=== PATIENT | female | born 1995 | race Caucasian/White ===

== ENCOUNTER 2017-09-01 17:45 | Emergency (ER) | payer SELFPAY ==
--- NOTE | 2017-09-01 19:27 | ER ---
Nurse's Notes [facility] Name: Vero Hoffmann Age: 22 yrs Sex: Female : 1995 Arrival Date: 09/01/2017 Time: 17:48 Bed Waiting Private MD: Diagnosis: Presentation: 09/01 17:51 Presenting complaint: Patient states: Vomiting that started 1 hour DOWN FILLER. Reports aj epigastric burning. Transition of care: patient was not received from another setting of care. Onset of symptoms was September 01, 2017. Initial Sepsis Screen: Does the patient meet any 2 criteria? No. Patient's initial sepsis screen is negative. Does the patient have a suspected source of infection? No. Patient's initial sepsis screen is negative. Care prior to arrival: None. 17:51 Method Of Arrival: Ambulatory aj 17:51 Acuity: RODOLFO 3 aj Triage Assessment: 17:52 General: Appears in no apparent distress. uncomfortable, Behavior is calm, cooperative, aj appropriate for age. Pain: Denies pain. Neuro: Level of Consciousness is awake, alert, obeys commands, Oriented to person, place, time, situation, Appropriate for age. Respiratory: Reports cough that is Onset: The symptoms/episode began/occurred just prior to arrival, the patient has mild shortness of breath. GI: Reports nausea, vomiting. Derm: Skin is intact, is healthy with good turgor, Skin is pink, warm \T\ dry. normal. 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 Vital Signs: 17:52 BP 130 / 79; Pulse 99; Resp 20; Temp 98.2; Pulse Ox 100% on R/A; Weight 93.44 kg; aj Height 5 ft. 3 in. (160.02 cm); 17:52 Body Mass Index 36.49 (93.44 kg, 160.02 cm) aj ED Course: 17:48 Patient arrived in ED. sb2 17:52 Triage completed. aj 17:52 Arm band placed on left wrist. Patient placed in waiting room, Patient notified of wait aj time. 18:48 Shanta Ye FNP-C is [facility]. snw 18:48 Stanislav Stewart MD is Attending Physician. snw 19:15 Patient's name was called from ER lobby. No response. aj 19:25 Patient's name was called from ER lobby. No response. Unable to locate patient. Will aj disposition as left without being seen by a provider. 19:26 Stanislav Stewart MD is Attending Physician. aj Administered Medications: No medications were administered Outcome: 19:25 Eloped from waiting room, post triage evaluation and consult. Registration reported aj seeing patient leave 19:26 Patient left the ED. aj Signatures: Pat Younger, RN RN Shanta Mahoney FNP-C AD CLERK-Csnw Shayy Aly sb2
[2017-09-01 19:30] VITALS: BP 130/79; TEMP 98.2; O2SAT 100
== END 2017-09-01 19:26 | disposition left against medical advice (07) ==
LOC: ER 17:45
DX: Z53.21 Procedure and treatment not carried out due to patient leaving prior to being seen by health care provider (principal)
CPT/HCPCS: 99281

== ENCOUNTER 2017-09-07 19:31 | Emergency (ER) | payer OTHER ==
[2017-09-07] MEDS ORDERED: MAGNE/ALUM HYDROXD 30 ML UCUP ONE (20:12)
[2017-09-07] MEDS ORDERED: FAMOTIDINE 20 MG/2 ML VIAL IV ONE (20:13)
[2017-09-07] MEDS ORDERED: LIDOCAINE VISCOUS 2% SOLN 15 ML UDC ONE (20:13)
[2017-09-07] MEDS ORDERED: ONDANSETRON 4 MG/2 ML VIAL ONE (20:13)
[2017-09-07 20:21] LABS: Absolute Lymphocytes (CBC) 2.1 K/uL (0.7-4.9); Absolute Monocytes 0.6 K/uL (0.1-1.3); Absolute Neutrophil 6.7 K/uL (1.8-8.0); Basophils % 0.2 % (0-1.3); Eosinophils % 3.3 % (0-4.4); Hematocrit 41.1 % (36.0-45.0); Lymphocytes % 21.7 % (15.3-44.8); MCH 28.4 pg (27.0-35.0); MCV 86.2 fL (80-100); MPV 10.8 fL (7.6-11.3); Monocytes % 6.2 % (3.3-12.3); RBC Red Blood Cell Count 4.77 M/uL (3.86-4.86)
[2017-09-07 20:22] LABS: Urine Blood NEGATIVE (NEG); Urine Glucose NEGATIVE (NEG); Urine Protein NEGATIVE (NEG); Urine Specific Gravity >1.030 (1.005-1.030); Urine pH 5.5 (5.0-7.0)
[2017-09-07 20:30] LABS: Bicarbonate 29 mEq/L (21-31); Glucose Level 105 mg/dL (65-120); Lipase 26 U/L (22-51); Potassium 3.4 mEq/L (3.6-5.0); Sodium Level 140 mEq/L (135-145)
[2017-09-07 20:36] LABS: ALT/SGPT 11 IU/L (10-60); AST/SGOT 18 IU/L (10-42); Albumin 4.5 g/dL (3.2-5.5); Alkaline Phosphatase 57 IU/L (42-121); Amylase Level 67 U/L (28-100); BUN Blood Urea Nitrogen 11 mg/dL (6-20); Bilirubin Direct < 0.1 mg/dL (0-0.2); Bilirubin Total 0.3 mg/dL (0.3-1.2); Protein, Total 8.4 g/dL (6.0-8.3)
[2017-09-07 20:37] LABS: Urine Amorphous Sediment 1+ /HPF (NONE SEEN); Urine Bacteria <20 /HPF (<20); Urine Culture Reflex Order NOT NEEDED; Urine Mucus 2+ /HPF (NONE SEEN); Urine RBC <5 /HPF (NONE SEEN)
--- NOTE | 2017-09-07 20:41 | RAD REPORT ---
EXAM DESCRIPTION: RAD - Chest Pa And Lat (2 Views) - 09/07/2017 8:31 pm CLINICAL HISTORY: Chest pain COMPARISON: None. TECHNIQUE: PA and lateral views of the chest were obtained. FINDINGS: The lungs are clear. Heart size is normal and central vasculature is within normal limit s. No pleural effusion or pneumothorax seen. No acute bony finding noted. No aortic abnormality. IMPRESSION: No acute cardiopulmonary process.
--- NOTE | 2017-09-07 20:54 | EDPHYS ---
Physician Documentation [facility] Name: Vero Hoffmann Age: 22 yrs Sex: Female : 1995 Arrival Date: 09/07/2017 Time: 19:32 Bed 20 Private MD: ED Physician Tasha Mejia HPI: 09/07 20:13 This 22 yrs old Female presents to ER via Ambulatory with complaints of Nasal ma2 Congestion, Nausea. 20:13 Onset: The symptoms/episode began/occurred gradually, 1 day(s) ago. Severity of ma2 symptoms: At their worst the symptoms were mild. Associated signs and symptoms: Pertinent positives: nausea, vomiting, Pertinent negatives: chest pain, diarrhea, ear ache, sore throat. The patient has experienced similar episodes in the past, takes tums . has epigastric burning and vomiting with eating and drinking . 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 - Social history:: Smoking status: Patient/guardian denies using tobacco, Patient/guardian denies using alcohol, street drugs, The patient lives with family. - Family history:: not pertinent. ROS: 20:13 Constitutional: Negative for fever, chills, and weight loss. ma2 20:13 Abdomen/GI: Positive for nausea and vomiting. 20:13 All other systems are negative. Exam: 20:13 Constitutional: This is a well developed, well nourished patient who is awake, alert, ma2 and in no acute distress. Head/Face: Normocephalic, atraumatic. Chest/axilla: Normal chest wall appearance and motion. Nontender with no deformity. No lesions are appreciated. Cardiovascular: Regular rate and rhythm with a normal S1 and S2. No gallops, murmurs, or rubs. Normal PMI, no JVD. No pulse deficits. Respiratory: Lungs have equal breath sounds bilaterally, clear to auscultation and percussion. No rales, rhonchi or wheezes noted. No increased work of breathing, no retractions or nasal flaring. Abdomen/GI: Soft, non-tender, with normal bowel sounds. No distension or tympany. No guarding or rebound. No evidence of tenderness throughout. Vital Signs: 19:40 BP 137 / 89; Pulse 69; Resp 19; Temp 98.4; Pulse Ox 100% on R/A; Weight 83.01 kg; la1 Height 5 ft. 3 in. (160.02 cm); 21:00 Pulse 75; Resp 16; Temp 98.6; Pulse Ox 100% ; bp 19:40 Body Mass Index 32.42 (83.01 kg, 160.02 cm) la1 MDM: 19:45 Patient medically screened. ma2 20:13 Differential Diagnosis: Bronchitis Upper Respiratory Infection Viral Syndrome Other ma2 GERD. 20:52 Data reviewed: vital signs, nurses notes, lab test result(s), radiologic studies. ma2 Counseling: I had a detailed discussion with the patient and/or guardian regarding: the historical points, exam findings, and any diagnostic results supporting the discharge/admit diagnosis, the presence of at least one elevated blood pressure reading (>120/80) during this emergency department visit, the need for outpatient follow up. ED course: pooja Lindsay po will send home with pcp f/u . 09/07 19:55 Order name: Amylase, Serum; Complete Time: 20:51 [facility] 09/07 19:55 Order name: Basic Metabolic Panel; Complete Time: 20:51 [facility] 09/07 19:55 Order name: CBC with Diff; Complete Time: 20:51 [facility] 09/07 19:55 Order name: Creatinine for Radiology; Complete Time: 20:51 [facility] 09/07 19:55 Order name: Hepatic Function; Complete Time: 20:51 [facility] 09/07 19:55 Order name: Lipase; Complete Time: 20:51 [facility] 09/07 19:55 Order name: Urine Microscopic Only; Complete Time: 20:51 [facility] 09/07 19:55 Order name: IV Saline Lock; Complete Time: 20:11 [facility] 09/07 19:55 Order name: XRAY Chest Pa And Lat (2 Views); Complete Time: 20:51 [facility] 09/07 20:16 Order name: Urine Dipstick--Ancillary (enter results); Complete Time: 20:51 [facility] 09/07 20:16 Order name: Urine --Ancillary (enter results); Complete Time: 20:51 [facility] 09/07 19:55 Order name: Labs collected and sent; Complete Time: 20:11 mo2 09/07 19:55 Order name: Urine Dipstick-Ancillary (obtain specimen); Complete Time: 20:11 mo2 09/07 19:55 Order name: Urine Test (obtain specimen); Complete Time: 20:11 Administered Medications: 20:05 Drug: GI Cocktail without - (Maalox Suspension 30 ml, Lidocaine Liquid 2 % 15 bp ml) Route: PO; 20:20 Follow up: Response: No adverse reaction bp 20:05 Drug: Zofran 4 mg Route: PO; bp 20:20 Follow up: Response: No adverse reaction bp 20:05 Drug: Pepcid 20 mg Route: PO; bp 20:21 Follow up: Response: No adverse reaction bp Disposition: 09/07/17 20:53 Discharged to Home. Impression: Vomiting. - Condition is Stable. - Prescriptions for Zofran 4 mg Oral Tablet - take 1 tablet by ORAL route every 12 hours As needed; 20 tablet. Pepcid 20 mg Oral Tablet - take 1 tablet by ORAL route once daily for 10 days; 10 tablet. - Medication Reconciliation Form, Thank You Letter, Antibiotic Education, Prescription Opioid Use form. - Follow up: Private Physician; When: Tomorrow; Reason: Continuance of care. - Problem is new. - Symptoms have improved. Signatures: Dispatcher [employer] EDMS Karen Santiago ms Darren Dalton, RN RN la1 Delmar Sky RN RN bp Tasha Mejia MD MD ma2 Corrections: (The following items were deleted from the chart) 21:08 20:53 09/07/2017 20:53 Discharged to Home. Impression: Vomiting. Condition is Stable. ms Forms are Medication Reconciliation Form, Thank You Letter, Antibiotic Education, Prescription Opioid Use. Follow up: Private Physician; When: Tomorrow; Reason: Continuance of care. Problem is new. Symptoms have improved. ma2
--- NOTE | 2017-09-07 20:54 | ER ---
Nurse's Notes [facility] Name: Vero Hoffmann Age: 22 yrs Sex: Female : 1995 Arrival Date: 09/07/2017 Time: 19:32 Bed 20 Private MD: Diagnosis: Vomiting Presentation: 09/07 19:40 Presenting complaint: Patient states: anytime after I eat I get a burning sensation and la1 throw up. 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 Transition of care: patient was not received from another setting of care. Onset of symptoms was September 07, 2017. Initial Sepsis Screen: Does the patient meet any 2 criteria? No. Patient's initial sepsis screen is negative. Does the patient have a suspected source of infection? No. Patient's initial sepsis screen is negative. Care prior to arrival: None. 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 - Social history:: Smoking status: Patient/guardian denies using tobacco, Patient/guardian denies using alcohol, street drugs, The patient lives with family. - Family history:: not pertinent. Screenin:53 Abuse screen: Denies threats or abuse. Denies injuries from another. Nutritional bp screening: No deficits noted. Tuberculosis screening: No symptoms or risk factors identified. Fall Risk None identified. Assessment: 19:45 General: Appears in no apparent distress. comfortable, obese, Behavior is calm, bp cooperative, appropriate for age. Pain: Complains of pain in neck. Neuro: Level of Consciousness is awake, alert, obeys commands, Oriented to person, place, time, situation, Appropriate for age. Cardiovascular: No deficits noted. Respiratory: Airway is patent Respiratory effort is even, unlabored, Respiratory pattern is regular, symmetrical. GI: Abdomen is obese, Abd is soft and non tender X 4 quads. : No deficits noted. EENT: No deficits noted. Derm: No deficits noted. Musculoskeletal: Circulation, motion, and sensation intact. Range of motion: intact in all extremities. 21:00 Reassessment: PT D/C HOME AMBULATORY WITH FAMILY, DX WITH VOMITING. bp Vital Signs: 19:40 BP 137 / 89; Pulse 69; Resp 19; Temp 98.4; Pulse Ox 100% on R/A; Weight 83.01 kg; la1 Height 5 ft. 3 in. (160.02 cm); 21:00 Pulse 75; Resp 16; Temp 98.6; Pulse Ox 100% ; bp 19:40 Body Mass Index 32.42 (83.01 kg, 160.02 cm) la1 ED Course: 19:32 Patient arrived in ED. am2 19:40 Triage completed. la1 19:41 Arm band placed on right wrist. la1 19:45 Tasha Mejia MD is Attending Physician. ma2 19:51 Delmar Sky, RN is Primary Nurse. bp 19:53 Patient has correct armband on for positive identification. Bed in low position. Call bp light in reach. Side rails up X2. 20:00 Inserted saline lock: 20 gauge in right forearm, using aseptic technique. Blood bp collected. 20:31 XRAY Chest Pa And Lat (2 Views) In Process Unspecified. EDMS 21:09 No provider procedures requiring assistance completed. IV discontinued, intact, bp bleeding controlled, No redness/swelling at site. Pressure dressing applied. Administered Medications: 20:05 Drug: GI Cocktail without - (Maalox Suspension 30 ml, Lidocaine Liquid 2 % 15 bp ml) Route: PO; 20:20 Follow up: Response: No adverse reaction bp 20:05 Drug: Zofran 4 mg Route: PO; bp 20:20 Follow up: Response: No adverse reaction bp 20:05 Drug: Pepcid 20 mg Route: PO; bp 20:21 Follow up: Response: No adverse reaction bp Outcome: 20:53 Discharge ordered by . maRichard 21:08 Patient left the ED. ms 21:11 Discharged to home ambulatory, with family. bp 21:11 Condition: stable 21:11 Discharge instructions given to patient, Instructed on discharge instructions, follow up and referral plans. medication usage, Demonstrated understanding of instructions, follow-up care, medications, Prescriptions given X 2. Signatures: Dispatcher [employer] EDCA Karen Santiago ms Darren Dalton RN RN la1 Pat Reyes am2 Delmar Sky RN RN bp Alzahri, Mohammad, MD MD ma2
[2017-09-07 21:18] VITALS: BP 137/89; TEMP 98.4; O2SAT 100
== END 2017-09-07 21:08 | disposition home or self-care (01) ==
LOC: ER 19:31
DX: R11.10 Vomiting, unspecified (principal)
CPT/HCPCS: 36415; 71046; 80048; 80076; 81003; 81015; 81025; 82150; 83690; 85025; 99284; J2405

== ENCOUNTER 2017-09-08 17:47 | Emergency (ER) | payer OTHER ==
[2017-09-08 18:48] LABS: Absolute Lymphocytes (CBC) 1.5 K/uL (0.7-4.9); Absolute Monocytes 0.7 K/uL (0.1-1.3); Absolute Neutrophil 9.8 K/uL (1.8-8.0); Basophils % 0.6 % (0-1.3); Eosinophils % 2.3 % (0-4.4); Hematocrit 42.7 % (36.0-45.0); Lymphocytes % 11.8 % (15.3-44.8); MCH 28.1 pg (27.0-35.0); MCV 87.6 fL (80-100); MPV 10.6 fL (7.6-11.3); Monocytes % 5.9 % (3.3-12.3); RBC Red Blood Cell Count 4.87 M/uL (3.86-4.86)
[2017-09-08 18:51] LABS: Urine Blood TRACE (NEG); Urine Glucose NEGATIVE (NEG); Urine Protein NEGATIVE (NEG); Urine Specific Gravity >1.030 (1.005-1.030); Urine pH 5.5 (5.0-7.0)
[2017-09-08 18:57] LABS: Potassium 3.4 mEq/L (3.6-5.0)
[2017-09-08 19:00] LABS: Urine Bacteria <20 /HPF (<20); Urine Culture Reflex Order NOT NEEDED; Urine RBC <5 /HPF (NONE SEEN)
[2017-09-08 19:03] LABS: Albumin 4.4 g/dL (3.2-5.5); Bilirubin Direct 0.1 mg/dL (0-0.2); Bilirubin Total 0.4 mg/dL (0.3-1.2); Protein, Total 8.2 g/dL (6.0-8.3)
[2017-09-08] MEDS ORDERED: PANTOPRAZOLE 40 MG INJ ONE (19:42)
[2017-09-08] MEDS ORDERED: ONDANSETRON 4 MG/2 ML VIAL ONE (19:42)
[2017-09-08] MEDS ORDERED: NA CHLORIDE 0.9% 1,000 ML ONE (19:42)
--- NOTE | 2017-09-08 22:05 | RAD REPORT ---
EXAM DESCRIPTION: CT - Chest Abdomen Pelvis W Cont - 09/08/2017 9:54 pm CLINICAL HISTORY: Chest and abdomen pain. Vomiting. COMPARISON: 05/15/[address] scans are performed using dose optimization technique as appropriate and may includ e automated exposure control or mA/KV adjustment according to patient size. FINDINGS: The lungs are clear.Small hiatal hernia.No pleural or pericardial effusion.No intrathoraci c adenopathy. The liver demonstrates mild diffuse fatty infiltration. The spleen, pancreas, adrenal glands and kidn eys are within normal limits. Small fat containing umbilical hernia. No bowel obstruction, free air, free fluid or abscess. The appendix is normal. No pathologic lymphade nopathy in the abdomen or pelvis. No worrisome osseous finding. IMPRESSION: No acute finding is demonstrated. Fatty liver.
[2017-09-08] MEDS ORDERED: POTASSIUM CL SA 10 MEQ TAB PO ONE (22:23)
--- NOTE | 2017-09-08 22:31 | EDPHYS ---
Physician Documentation [facility] Name: Vero Hoffmann Age: 22 yrs Sex: Female : 1995 Arrival Date: 09/08/2017 Time: 17:49 Bed 15 Private MD: ED Physician Kirt Lafleur HPI: 09/08 18:30 This 22 yrs old Female presents to ER via Ambulatory with complaints of cp Vomiting. 18:30 The patient presents to the emergency department with nausea, that is mild, vomiting, cp that is intermittent, described as undigested food, abdominal pain, of the epigastric area and retrosternal area. 18:30 Onset: The symptoms/episode began/occurred 2 day(s) ago. cp 18:30 Associated signs and symptoms: Pertinent negatives: constipation, diarrhea, fever, GI cp bleeding. Severity of symptoms: in the emergency department the symptoms are unchanged. The patient has been recently seen at the [facility] Emergency Department, yesterday, for similar complaints chest xray performed. 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 - Social history:: Smoking status: Patient/guardian denies using tobacco. ROS: 18:35 Constitutional: Negative for body aches, chills, fever, poor PO intake, weight loss. cp 18:35 Eyes: Negative for injury, pain, redness, and discharge. cp 18:35 ENT: Negative for drainage from ear(s), ear pain, sore throat, difficulty handling secretions. 18:35 Neck: Negative for pain with movement, pain at rest, stiffness, swollen nodes, tenderness, bony tenderness. 18:35 Cardiovascular: Positive for retrosternal pain, Negative for edema, palpitations. 18:35 Respiratory: Negative for cough, shortness of breath, wheezing. 18:35 Abdomen/GI: Positive for abdominal pain, nausea, vomiting, of the epigastric area, Negative for diarrhea, constipation, dysphagia, black/tarry stool, rectal bleeding. 18:35 Back: Negative for pain at rest, pain with movement, radiated pain. 18:35 : Negative for urinary symptoms. 18:35 Skin: Negative for cellulitis, rash. 18:35 Neuro: Negative for altered mental status, dizziness, syncope, near syncope, weakness. 18:35 All other systems are negative. Exam: 18:42 Constitutional: The patient appears in no acute distress, alert, awake, cp non-diaphoretic, non-toxic, well developed, well nourished. 18:42 Head/Face: Normocephalic, atraumatic. Eyes: Pupils equal round and reactive to light, cp extra-ocular motions intact. Lids and lashes normal. Conjunctiva and sclera are non-icteric and not injected. Cornea within normal limits. Periorbital areas with no swelling, redness, or edema. ENT: Nares patent. No nasal discharge, no septal abnormalities noted. Tympanic membranes are normal and external auditory canals are clear. Oropharynx with no redness, swelling, or masses, exudates, or evidence of obstruction, uvula midline. Mucous membranes moist. 18:42 Chest/axilla: Inspection: normal, Palpation: crepitus, is not appreciated, tenderness, that is mild, of the mid-sternal area. 18:42 Cardiovascular: Rate: tachycardic, Rhythm: regular, Pulses: Pulses are 2+ in right radial artery and left radial artery. 18:42 Respiratory: the patient does not display signs of respiratory distress, Respirations: normal, no use of accessory muscles, no retractions, no splinting, no tachypnea, labored breathing, is not present, Breath sounds: are clear throughout, no decreased breath sounds, no stridor, no wheezing. 18:42 Abdomen/GI: Inspection: abdomen appears normal, Bowel sounds: active, all quadrants, Palpation: soft, in all quadrants, mild abdominal tenderness, in the epigastric area, rebound tenderness, is not appreciated, voluntary guarding, is not appreciated, involuntary guarding, is not appreciated. 18:42 Back: pain, is absent, ROM is normal. 18:42 Skin: cellulitis, is not appreciated, no rash present. 18:42 Neuro: Orientation: to person, place \T\ time. Mentation: lucid, able to follow commands, Cerebellar function: is grossly normal, Motor: moves all fours, strength is normal, Sensation: no obvious gross deficits. 19:56 ECG was reviewed by the Attending Physician. cp Vital Signs: 17:54 BP 133 / 71; Pulse 112; Resp 19; Temp 97.2; Pulse Ox 100% on R/A; Weight 81.65 kg; la1 Height 5 ft. 3 in. (160.02 cm); 19:39 BP 112 / 69; Pulse 83; Resp 16; Pulse Ox 98% on R/A; aa1 20:43 BP 104 / 67; Pulse 86; Resp 16; Pulse Ox 100% on R/A; aa1 21:35 BP 105 / 73; Pulse 88; Resp 16; Pulse Ox 99% on R/A; aa1 17:54 Body Mass Index 31.89 (81.65 kg, 160.02 cm) la1 MDM: 18:12 Patient medically screened. 22:28 Data reviewed: vital signs, nurses notes, lab test result(s), EKG, radiologic studies, cp CT scan. 22:28 Counseling: I had a detailed discussion with the patient and/or guardian regarding: the cp historical points, exam findings, and any diagnostic results supporting the discharge/admit diagnosis, lab results, radiology results, the need for outpatient follow up, a cat tender, to return to the emergency department if symptoms worsen or persist or if there are any questions or concerns that arise at home. Response to treatment: the patient's symptoms have markedly improved after treatment, VSS. Vomiting resolved in ED. Patient observed tolerating po fluids, and as a result, I will discharge patient. 09/08 18:24 Order name: Amylase, Serum; Complete Time: 19:08 09/08 18:24 Order name: Basic Metabolic Panel; Complete Time: 19:08 09/08 22:20 Interpretation: Normal except: K 3.4; GFR 85. 09/08 18:24 Order name: CBC with Diff; Complete Time: 19:08 09/08 22:20 Interpretation: Normal except: WBC 12.4; RBC 4.87; PAUL% 79.4; LYM% 11.8; NEUT A 9.8. 09/08 18:24 Order name: Creatinine for Radiology; Complete Time: 19:08 09/08 18:24 Order name: Hepatic Function; Complete Time: 19:08 09/08 22:20 Interpretation: Normal except: GLOB 3.8. 09/08 18:24 Order name: Lipase; Complete Time: 19:08 09/08 18:24 Order name: Urine Microscopic Only; Complete Time: 19:08 cp 09/08 22:20 Interpretation: Normal except: SQEPI >50. cp 09/08 18:47 Order name: Urine Dipstick--Ancillary (enter results); Complete Time: 19:08 ag 09/08 22:21 Interpretation: Normal except: UKET 1+; UBLD TRACE. cp 09/08 18:47 Order name: Urine --Ancillary (enter results); Complete Time: 19:08 ag 09/08 22:20 Interpretation: USPGR >1.030; Reviewed. cp 09/08 19:42 Order name: Chest Abdomen Pelvis W Cont; Complete Time: 22:16 EDMS 09/08 18:24 Order name: Urine Test (obtain specimen); Complete Time: 18:40 cp 09/08 18:24 Order name: IV Saline Lock; Complete Time: 18:40 cp 09/08 18:24 Order name: Labs collected and sent; Complete Time: 18:40 cp 09/08 18:24 Order name: Urine Dipstick-Ancillary (obtain specimen); Complete Time: 18:41 cp 09/08 19:19 Order name: EKG; Complete Time: 19:19 cp 09/08 19:19 Order name: EKG - Nurse/Tech; Complete Time: 19:58 cp EC:56 Rate is 87 beats/min. Rhythm is regular. IA interval is normal. QRS interval is normal. cp QT interval is normal. T waves are Normal. No ST changes noted. Interpreted by me. Reviewed by me. Administered Medications: 19:50 Drug: NS 0.9% 1000 ml Route: IV; Rate: 1 bolus; Site: right antecubital; aa1 22:53 Follow up: IV Status: Completed infusion bp 19:50 Drug: Zofran 4 mg Route: IVP; Site: right antecubital; aa1 21:50 Follow up: Response: No adverse reaction bp 19:52 Drug: ProTONIX 40 mg Route: IVP; Site: right antecubital; aa1 21:49 Follow up: Response: No adverse reaction bp 22:20 Drug: Potassium Effervescent Tablet 25 mEq Route: PO; bp 22:26 Follow up: Response: No adverse reaction bp Disposition: 09/08/17 22:31 Discharged to Home. Impression: Nausea and vomiting, Epigastric pain. - Condition is Stable. - Discharge Instructions: Gastroesophageal Reflux Disease, Adult, Nausea and Vomiting. - Prescriptions for Protonix 40 mg Oral Tablet - take 1 tablet by ORAL route once daily; 30 tablet. Phenergan 25 mg Rectal Suppository - insert 1 suppository by RECTAL route every 6 hours As needed; 12 suppository. promethazine 25 mg Oral Tablet - take 1 tablet by ORAL route every 6 hours As needed; 20 tablet. - Medication Reconciliation Form, Thank You Letter, Antibiotic Education, Prescription Opioid Use form. - Follow up: Homar Li MD; When: 2 - 3 days; Reason: Recheck today's complaints. - Problem is new. - Symptoms have improved. Addendum: 09/17/2017 06:00 Co-signature as Attending Physician, Kirt Lafleur MD I agree with the assessment and w a plan of care. Signatures: Dispatcher [employer] [facility] Tari Hugo RN RN aa1 Darren Dalton RN RN la1 Layton Edmondson PA PA cp Kirt Lafleur MD MD tn Delmar Sky, RN RN bp Corrections: (The following items were deleted from the chart) 09/08 19:42 19:23 Chest Abdomen W/ Con+CT.RAD.BRZ ordered. [facility] 22:53 22:31 09/08/2017 22:31 Discharged to Home. Impression: Nausea and vomiting; Epigastric bp pain. Condition is Stable. Forms are Medication Reconciliation Form, Thank You Letter, Antibiotic Education, Prescription Opioid Use. Follow up: Homar Li; When: 2 - 3 days; Reason: Recheck today's complaints. Problem is new. Symptoms have improved. cp
--- NOTE | 2017-09-08 22:31 | ER ---
Nurse's Notes [facility] Name: Vero Hoffmann Age: 22 yrs Sex: Female : 1995 Arrival Date: 09/08/2017 Time: 17:49 Bed 15 Private MD: Diagnosis: Nausea and vomiting;Epigastric pain Presentation: 09/08 17:54 Presenting complaint: Patient states: I was here yesterday for abd pain and vomiting la1 and it is getting worse. Transition of care: patient was not received from another setting of care. Onset of symptoms was September 08, 2017. Initial Sepsis Screen: Does the patient meet any 2 criteria? No. Patient's initial sepsis screen is negative. Does the patient have a suspected source of infection? No. Patient's initial sepsis screen is negative. Care prior to arrival: None. 17:54 Method Of Arrival: Ambulatory la1 17:54 Acuity: RODOLFO 3 la1 Triage Assessment: 21:30 General: Appears in no apparent distress. comfortable, obese, Behavior is calm, bp cooperative, appropriate for age. 21:30 Pain: Complains of pain in abdomen. GI: Reports nausea. 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 - Social history:: Smoking status: Patient/guardian denies using tobacco. Screenin:41 Abuse screen: Denies threats or abuse. Nutritional screening: No deficits noted. em Tuberculosis screening: No symptoms or risk factors identified. Fall Risk None identified. Assessment: 19:39 Reassessment: Patient appears in no apparent distress at this time. Patient and/or aa1 family updated on plan of care and expected duration. Pain level reassessed. Patient is alert, oriented x 3, equal unlabored respirations, skin warm/dry/pink. Pt awaiting CT scan. 20:43 Reassessment: Patient appears in no apparent distress at this time. Patient and/or aa1 family updated on plan of care and expected duration. Pain level reassessed. Patient is alert, oriented x 3, equal unlabored respirations, skin warm/dry/pink. Pt continues to await CT scan. Smiling and playing with daughter. 21:48 Reassessment: RECD REPORT FROM AVRIL MARIN. 22YO WF P/W N/V, SEEN FOR SAME LAST PM. NO bp EMESIS SINCE ARRIVAL IN ER. PT TO CT WITH TAYLOR SMITH AT THIS TIME. 22:51 Reassessment: PT D/C HOME AMBULATORY WITH FAMILY, DX WITH GERD. bp Vital Signs: 17:54 BP 133 / 71; Pulse 112; Resp 19; Temp 97.2; Pulse Ox 100% on R/A; Weight 81.65 kg; la1 Height 5 ft. 3 in. (160.02 cm); 19:39 BP 112 / 69; Pulse 83; Resp 16; Pulse Ox 98% on R/A; aa1 20:43 BP 104 / 67; Pulse 86; Resp 16; Pulse Ox 100% on R/A; aa1 21:35 BP 105 / 73; Pulse 88; Resp 16; Pulse Ox 99% on R/A; aa1 17:54 Body Mass Index 31.89 (81.65 kg, 160.02 cm) la1 ED Course: 17:49 Patient arrived in ED. mr 17:54 Triage completed. la1 17:55 Arm band placed on right wrist. la1 18:10 Elmo Villafuerte LVN is Primary Nurse. em 18:12 Layton Edmondson PA is PHCP. cp 18:12 Kirt Lafleur MD is Attending Physician. cp 18:41 No provider procedures requiring assistance completed. Initial lab(s) drawn, by me, em sent to lab. Urine collected: clean catch specimen, clear. Inserted saline lock: 20 gauge in right forearm, using aseptic technique. Blood collected. 19:45 EKG done, by ED staff, reviewed by Geronimo Paiz MD. aa1 21:30 Patient has correct armband on for positive identification. Placed in gown. Bed in low bp position. Call light in reach. Side rails up X2. Adult w/ patient. 21:50 Primary Nurse role handed off by Elmo Villafuerte LVN bp 21:50 Delmar Sky, TOMAS is Primary Nurse. bp 21:51 CT completed. Patient moved to CT via wheelchair. Patient moved back from CT. cw1 21:54 Chest Abdomen Pelvis W Cont In Process Unspecified. EDMS 22:30 Homar Li MD is Referral Physician. cp 22:50 IV discontinued, intact, bleeding controlled, No redness/swelling at site. Pressure bp dressing applied. Administered Medications: 19:50 Drug: NS 0.9% 1000 ml Route: IV; Rate: 1 bolus; Site: right antecubital; aa1 22:53 Follow up: IV Status: Completed infusion bp 19:50 Drug: Zofran 4 mg Route: IVP; Site: right antecubital; aa1 21:50 Follow up: Response: No adverse reaction bp 19:52 Drug: ProTONIX 40 mg Route: IVP; Site: right antecubital; aa1 21:49 Follow up: Response: No adverse reaction bp 22:20 Drug: Potassium Effervescent Tablet 25 mEq Route: PO; bp 22:26 Follow up: Response: No adverse reaction bp Outcome: 22:31 Discharge ordered by MD. cp 22:51 Discharged to home ambulatory, with family. bp 22:51 Condition: stable 22:51 Discharge instructions given to patient, Instructed on discharge instructions, follow up and referral plans. medication usage, Demonstrated understanding of instructions, follow-up care, medications, Prescriptions given X 3. 22:53 Patient left the ED. bp Signatures: Dispatcher [employer] Avril Duran RN RN aa1 Karen Dia mr ChristoElmo, QUALITY CONTROL LAB TECH QUALITY CONTROL LAB TECH Hortensia Charles cw1 Darren Dalton, RN RN la1 Layton Edmondson PA PA Delmar Falcon, RN RN bp
[2017-09-08 23:01] VITALS: TEMP 97.2
[2017-09-08 23:05] VITALS: BP 105/73; O2SAT 99
--- NOTE | 2017-09-09 07:42 | EKG ---
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
== END 2017-09-08 22:53 | disposition home or self-care (01) ==
LOC: ER 17:47
DX: R10.13 Epigastric pain (principal)
CPT/HCPCS: 36415; 71260; 74177; 80048; 80076; 81003; 81015; 81025; 82150; 83690; 85025; 93005; 96361; 96374; 96375; 99284; C9113; J2405; J7030; Q9967

== ENCOUNTER 2017-10-31 14:27 | Emergency (ER) | payer OTHER, SELFPAY ==
[2017-10-31] MEDS ORDERED: NA CHLORIDE 0.9% 1,000 ML ONE (15:06)
[2017-10-31] MEDS ORDERED: PROMETHAZINE 25 MG/ML VIAL ONE (15:06)
[2017-10-31 15:29] LABS: Absolute Lymphocytes (CBC) 1.4 K/uL (0.7-4.9); Absolute Monocytes 0.6 K/uL (0.1-1.3); Absolute Neutrophil 6.7 K/uL (1.8-8.0); Basophils % 0.3 % (0-1.3); Eosinophils % 1.4 % (0-4.4); Hematocrit 40.9 % (36.0-45.0); Lymphocytes % 15.6 % (15.3-44.8); MCH 28.9 pg (27.0-35.0); MCV 87.6 fL (80-100); MPV 11.4 fL (7.6-11.3); Monocytes % 7.2 % (3.3-12.3); RBC Red Blood Cell Count 4.68 M/uL (3.86-4.86)
[2017-10-31 15:43] LABS: BUN Blood Urea Nitrogen 6 mg/dL (7-18); Bicarbonate 29 mmol/L (21-32); Glucose Level 86 mg/dL (74-106); Potassium 3.9 mmol/L (3.5-5.1); Sodium Level 137 mmol/L (136-145)
--- NOTE | 2017-10-31 16:08 | ER ---
Nurse's Notes [facility] Name: Vero Hoffmann Age: 22 yrs Sex: Female : 1995 Arrival Date: 10/31/2017 Time: 14:30 Bed 5 Private MD: Diagnosis: Nausea and vomiting; related nausea and vomiting Presentation: 10/31 14:31 Presenting complaint: Patient states: Two days ago, I started having episode of sg vomiting, Im about 9 wks and nothing that I eat or drink is staying down, Im vomiting up orange liquid, it sweet so bad. weakness now starting today. Transition of care: patient was not received from another setting of care. Onset of symptoms was October 31, 2017. Risk Assessment: Do you want to hurt yourself or someone else? Patient reports no desire to harm self or others. Initial Sepsis Screen: Does the patient meet any 2 criteria? No. Patient's initial sepsis screen is negative. Does the patient have a suspected source of infection? No. Patient's initial sepsis screen is negative. Care prior to arrival: None. 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 - Social history:: Smoking status: Patient/guardian denies using tobacco. - Ebola Screening: : Patient negative for fever greater than or equal to 101.5 degrees Fahrenheit, and additional compatible Ebola Virus Disease symptoms Patient denies exposure to infectious person Patient denies travel to an Ebola-affected area in the 21 days before illness onset No symptoms or risks identified at this time. Screenin:10 Abuse screen: Denies threats or abuse. Denies injuries from another. Nutritional sv screening: No deficits noted. Tuberculosis screening: No symptoms or risk factors identified. Fall Risk None identified. Assessment: 15:10 General: Appears in no apparent distress. uncomfortable, obese, Behavior is calm, sv cooperative, appropriate for age. Pain: Denies pain. Neuro: Level of Consciousness is awake, alert, obeys commands, Oriented to person, place, time, situation, Moves all extremities. Full function Speech is normal. Respiratory: Respiratory effort is even, unlabored, Respiratory pattern is regular, symmetrical. GI: Abdomen is obese, Reports indigestion, nausea, vomiting. Derm: Skin is pink, warm \T\ dry. Musculoskeletal: Range of motion: intact in all extremities. Vital Signs: 14:33 BP 129 / 82; Pulse 100; Resp 17; Temp 98.4; Pulse Ox 100% on R/A; Weight 96.16 kg; sg Height 5 ft. 4 in. (162.56 cm); Pain 0/10; 14:33 Body Mass Index 36.39 (96.16 kg, 162.56 cm) ED Course: 14:30 Patient arrived in ED. 14:33 Triage completed. 14:33 Arm band placed on. 14:50 Ovidio Cash PA is PHCP. jr8 14:50 Stanislav Stewart MD is Attending Physician. jr8 15:00 Cindy Perry RN is Primary Nurse. sv 15:10 Patient has correct armband on for positive identification. Bed in low position. Adult sv w/ patient. Door closed. Head of bed elevated. 15:10 Initial lab(s) drawn, by me, sent to lab. Inserted saline lock: 20 gauge in right sv antecubital area, using aseptic technique. Blood collected. Flushed right antecubital with 5 ml normal saline. Administered Medications: 15:12 Drug: NS 0.9% 1000 ml Route: IV; Rate: 1000 ml; Site: right antecubital; sv 16:23 Follow up: Response: No adverse reaction; IV Status: Completed infusion; IV Intake: sv 1000ml 15:14 Drug: Phenergan 12.5 mg Route: IVP; Site: right antecubital; sv 16:23 Follow up: Response: No adverse reaction sv Intake: 16:23 IV: 1000ml; Total: 1000ml. sv Outcome: 16:08 Discharge ordered by . jr8 16:32 Patient left the ED. Signatures: Cindy Perry RN RN Damien Tidwell RN RN Wilma Walden RN RN Ovidio Cash PA PA rust
--- NOTE | 2017-10-31 16:09 | EDPHYS ---
Physician Documentation [facility] Name: Vero Hoffmann Age: 22 yrs Sex: Female : 1995 Arrival Date: 10/31/2017 Time: 14:30 Bed 5 Private MD: ED Physician Stanislav Stewart HPI: 10/31 16:06 This 22 yrs old Female presents to ER via Ambulatory with complaints of jr8 Nausea, General Weakness. 16:06 The patient presents to the emergency department with nausea, vomiting. Onset: The jr8 symptoms/episode began/occurred acutely, today. Possible causes: . The symptoms are aggravated by food , The symptoms are alleviated by nothing. Associated signs and symptoms: The patient has no apparent associated signs or symptoms. Severity of symptoms: At their worst the symptoms were moderate in the emergency department the symptoms are unchanged. It is unknown whether or not the patient has had similar symptoms in the past. The patient has not recently seen a physician. 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 - Social history:: Smoking status: Patient/guardian denies using tobacco. - Ebola Screening: : Patient negative for fever greater than or equal to 101.5 degrees Fahrenheit, and additional compatible Ebola Virus Disease symptoms Patient denies exposure to infectious person Patient denies travel to an Ebola-affected area in the 21 days before illness onset No symptoms or risks identified at this time. ROS: 16:06 Eyes: Negative for injury, pain, redness, and discharge, ENT: Negative for injury, jr8 pain, and discharge, Neck: Negative for injury, pain, and swelling, Cardiovascular: Negative for chest pain, palpitations, and edema, Respiratory: Negative for shortness of breath, cough, wheezing, and pleuritic chest pain, Back: Negative for injury and pain, MS/Extremity: Negative for injury and deformity, Skin: Negative for injury, rash, and discoloration, Neuro: Negative for headache, weakness, numbness, tingling, and seizure. 16:06 Abdomen/GI: Positive for nausea and vomiting, Negative for abdominal pain, constipation, abdominal cramps, abdominal distension, anorexia, dysphagia, hematemesis, black/tarry stool, rectal pain, rectal bleeding, bowel incontinence, flatulence. Exam: 16:06 Eyes: Pupils equal round and reactive to light, extra-ocular motions intact. Lids and jr8 lashes normal. Conjunctiva and sclera are non-icteric and not injected. Cornea within normal limits. Periorbital areas with no swelling, redness, or edema. ENT: Nares patent. No nasal discharge, no septal abnormalities noted. Tympanic membranes are normal and external auditory canals are clear. Oropharynx with no redness, swelling, or masses, exudates, or evidence of obstruction, uvula midline. Mucous membranes moist. Neck: Trachea midline, no thyromegaly or masses palpated, and no cervical lymphadenopathy. Supple, full range of motion without nuchal rigidity, or vertebral point tenderness. No Meningismus. Cardiovascular: Regular rate and rhythm with a normal S1 and S2. No gallops, murmurs, or rubs. Normal PMI, no JVD. No pulse deficits. Respiratory: Lungs have equal breath sounds bilaterally, clear to auscultation and percussion. No rales, rhonchi or wheezes noted. No increased work of breathing, no retractions or nasal flaring. Abdomen/GI: Soft, non-tender, with normal bowel sounds. No distension or tympany. No guarding or rebound. No evidence of tenderness throughout. Back: No spinal tenderness. No costovertebral tenderness. Full range of motion. Skin: Warm, dry with normal turgor. Normal color with no rashes, no lesions, and no evidence of cellulitis. MS/ Extremity: Pulses equal, no cyanosis. Neurovascular intact. Full, normal range of motion. Neuro: Awake and alert, GCS 15, oriented to person, place, time, and situation. Cranial nerves II-XII grossly intact. Motor strength 5/5 in all extremities. Sensory grossly intact. Cerebellar exam normal. Normal gait. Vital Signs: 14:33 BP 129 / 82; Pulse 100; Resp 17; Temp 98.4; Pulse Ox 100% on R/A; Weight 96.16 kg; sg Height 5 ft. 4 in. (162.56 cm); Pain 0/10; 14:33 Body Mass Index 36.39 (96.16 kg, 162.56 cm) sg MDM: 14:50 Patient medically screened. 8 16:06 Data reviewed: vital signs, nurses notes, lab test result(s), and as a result, I will jr8 discharge patient. Data interpreted: Pulse oximetry: on room air is 100 %. Interpretation: normal. Counseling: I had a detailed discussion with the patient and/or guardian regarding: the historical points, exam findings, and any diagnostic results supporting the discharge/admit diagnosis, lab results, the need for outpatient follow up, an OB/Gyne specialist, to return to the emergency department if symptoms worsen or persist or if there are any questions or concerns that arise at home. Response to treatment: the patient's symptoms have markedly improved after treatment, patient is well hydrated. 10/31 15:00 Order name: CBC with Diff; Complete Time: 15:46 10/31 15:00 Order name: Basic Metabolic Panel; Complete Time: 15:46 [facility] 10/31 15:22 Order name: Urine Dipstick--Ancillary (enter results) [facility] 10/31 15:36 Order name: Urine --Ancillary (enter results) [facility] 10/31 15:00 Order name: Urine Test (obtain specimen); Complete Time: 15:18 [facility] 10/31 15:00 Order name: Urine Dipstick-Ancillary (obtain specimen); Complete Time: 15:18 [facility] 10/31 15:00 Order name: IV; Complete Time: 15:18 Administered Medications: 15:12 Drug: NS 0.9% 1000 ml Route: IV; Rate: 1000 ml; Site: right antecubital; sv 16:23 Follow up: Response: No adverse reaction; IV Status: Completed infusion; IV Intake: sv 1000ml 15:14 Drug: Phenergan 12.5 mg Route: IVP; Site: right antecubital; sv 16:23 Follow up: Response: No adverse reaction sv Disposition: 18:34 Co-signature as Attending Physician, Stanislav Stewart MD. rn Disposition: 10/31/17 16:08 Discharged to Home. Impression: Nausea and vomiting, related nausea and vomiting . - Condition is Stable. - Discharge Instructions: Nausea and Vomiting. - Prescriptions for promethazine 25 mg Oral Tablet - take 1 tablet by ORAL route every 6 hours As needed; 20 tablet. - Medication Reconciliation Form, Thank You Letter, Antibiotic Education, Prescription Opioid Use form. - Follow up: Private Physician; When: 5 - 6 days; Reason: Recheck today's complaints, Continuance of care, Re-evaluation by your physician. - Problem is new. - Symptoms have improved. Signatures: Dispatcher [employer] EDMS Cindy Perry RN RN sv Gay, Steven, RN RN sg Nieto, Roman, MD MD rn Smirch, Shelby, RN RN ss Roszak, Josh, PA PA jr8 Corrections: (The following items were deleted from the chart) 16:32 16:08 10/31/2017 16:08 Discharged to Home. Impression: Nausea and vomiting; ss related nausea and vomiting . Condition is Stable. Forms are Medication Reconciliation Form, Thank You Letter, Antibiotic Education, Prescription Opioid Use. Follow up: Private Physician; When: 5 - 6 days; Reason: Recheck today's complaints, Continuance of care, Re-evaluation by your physician. Problem is new. Symptoms have improved. jr8
[2017-10-31 16:36] VITALS: BP 129/82; TEMP 98.4; O2SAT 100
[2017-10-31 17:19] LABS: Urine Blood NEGATIVE (NEG); Urine Glucose NEGATIVE (NEG); Urine Protein NEGATIVE (NEG); Urine Specific Gravity 1.015 (1.005-1.030); Urine pH 8.5 (5.0-7.0)
== END 2017-10-31 16:32 | disposition home or self-care (01) ==
LOC: ER 14:27
DX: O21.9 Vomiting of pregnancy, unspecified (principal); Z3A.00 Weeks of gestation of pregnancy not specified
CPT/HCPCS: 36415; 80048; 81003; 81025; 85025; 96361; 96374; 99283; J2550; J7030

== ENCOUNTER 2020-02-03 22:28 | Emergency (ER) | payer OTHER, SELFPAY ==
--- NOTE | 2020-02-03 23:37 | ER ---
Nurse's Notes [facility] Name: Vero Hoffmann Age: 24 yrs Sex: Female : 1995 Arrival Date: 02/03/2020 Time: 22:34 Bed External Waiting Private MD: Diagnosis: Presentation: 02/02 23:00 Acuity: RODOLFO 4 sg 23:00 Chief complaint: Patient states: throat feels itchy, sore, luis also been vomiting. sg Coronavirus screen: Client denies travel out of the [place] in the last 14 days. Ebola Screen: Patient negative for fever greater than or equal to 101.5 degrees Fahrenheit, and additional compatible Ebola Virus Disease symptoms Patient denies exposure to infectious person. Patient denies travel to an Ebola-affected area in the 21 days before illness onset. No symptoms or risks identified at this time. Risk Assessment:. Risk Assessment: Do you want to hurt yourself or someone else? Patient reports no desire to harm self or others. Onset of symptoms was February 03, 2020. Care prior to arrival: None. Transition of care: patient was not received from another setting of care. 23:00 Method Of Arrival: Ambulatory sg Historical: - Allergies: 23:17 No Known Allergies; sg - Home Meds: 23:17 None [Active]; sg - PMHx: 23:17 None; sg - PSHx: 23:17 None; sg - Immunization history:: Adult Immunizations up to date. - Social history:: Smoking status: Patient denies any tobacco usage or history of. ED Course: 22:34 Patient arrived in ED. mr 23:00 Triage completed. sg 23:09 Layton Edmondson PA is PHCP. cp 23:09 Geronimo Paiz MD is Attending Physician. cp 23:10 Patient's name was called from ER lobby. No response. sg Administered Medications: No medications were administered Outcome: 23:36 Patient left the ED. sg Signatures: Damien Tidwell RN RN jonathan HsuaEstephania mr Layton Edmondson PA PA cp
--- OUTSIDE RECORDS SUMMARY | 2020-02-04 22:38 | XMS REPORT | Summary of Care ---
:1995 Author Organization [facility] Address [address] [place] [id number] Care Team Providers Name Role Phone Xena Joyner Primary Care Provider Reason for Visit Reason Comments DEPO PROVERA Encounter Details Date Type Department Care Team Description 01/27/2020 Nurse Visit [facility]- Eugenia Joyner R, OFFICE AUDITOR [address] [place] [address] Depo-Provera [place] Visit, [facility] Nurse contraceptive status [address] [facility] (Primary Dx) [place] [address] Allergies No Known Allergiesdocumented as of this encounter (statuses as of 01/27/2020) Medications Hospital, Clinic, or Other Ordered Dose Route Frequency Start Date End Date Status Facility Administered Medication medroxyPROGESTERone 150 mg IM [id number] 11/04/2019 1 Active (DEPO-PROVERA) injection 150 mgIndications: Encounter for surveillance of injectable contraceptive documented as of this encounter (statuses as of 01/27/2020) Active Problems Problem Noted Date Well woman exam (no gynecological exam) 11/04/2019 Papanicolaou smear of cervix with low grade squamous i ntraepithelial 02/25/2019 lesion (LGSIL) Encounter for surveillance of injectable contraceptive 09/04/2018 BMI 38.0-38.9,adult 09/04/2018 39 weeks gestation of 06/05/2018 Class 2 obesity due to excess calories with body mass index (BMI) of 38.0 06/05/2018 to 38.9 in adult, unspecified whether serious comorbid ity present Excessive weight gain during , antepartum Supervision of high-risk with history of abo rtion in first 11/01/2017 trimester Rh negative state in antepartum period 04/24/2017 documented as of this encounter (statuses as of 01/27/2020) Resolved Problems Problem Noted Date Resolved Date Pre-eclampsia, mild, delivered 06/06/2018 9 Liveborn infant, of jacome , born in hospital by 06/06/2018 09/04/2018 vaginal delivery BMI 40.0-44.9, adult 06/05/2018 09/04/2018 Low-lying placenta in second trimester 01/30/2018 0 06/05/2018 Non-viable 04/24/2017 06/05/2018 of unknown anatomic location 04/24/2017 0 06/05/2018 , confirmed, not first 04/15/2017 06/05/19 19 documented as of this encounter (statuses as of 01/27/2020) Immunizations Name Administration Dates Next Due Influenza Virus Vaccine Quad .5 mL IM 6+ MO 01/30/2018 01/30/2019 Rho (d) Immune Globulin 03/19/2018 TDAP 03/06/2018 documented as of this encounter Social History Tobacco Use Types Packs/Day Years Used Date Never Smoker Smokeless Tobacco: Never Used Alcohol Use Drinks/Week oz/Week Comments No Sex Assigned at Date Recorded Not on file COVID-19 Exposure Response Date Recorded In the last month, have you been in contact with No / Unsure 01/27/2020 1:16 PM CDT someone who was confirmed or suspected to have Coronavirus / COVID-19? documented as of this encounter Last Filed Vital Signs Vital Sign Reading Time Taken Comments Blood Pressure 116/70 01/27/2020 1:17 PM CDT Pulse 82 01/27/2020 1:17 PM CDT Temperature 36.9 C (98.5 F) 01/27/2020 1:17 PM CDT Respiratory Rate 16 01/27/2020 1:17 PM CDT Oxygen Saturation - - Inhaled Oxygen Concentration - - Weight 105.8 kg (233 lb 3 oz) 01/27/2020 1:17 PM CDT Height 160 cm (5' 3") 01/27/2020 1:17 PM CDT Body Mass Index 41.31 01/27/2020 1:17 PM CDT documented in this encounter Patient Instructions Patient InstructionsNohemy Brower - 01/27/2020 1:00 PM CDT Patient Education Medroxyprogesterone injection [Contraceptive] Brand Names: Depo-Provera, Depo-subQ Provera 104 What is this medicine? MEDROXYPROGESTERONE (me DROX ee proe ADE te carmelo) contraceptive injections prevent . They provide effective control for 3 months. Depo-subQ Provera 104 is also used for treating pain related to endometriosis. How should I use this medicine? Depo-Provera Contraceptive injection is given into a muscle. Depo-subQ Provera 104 injection is given under the skin. These injections are given by a health home health care respiratory therapist. You must not be before getting an injection. The injection is usually given during the first 5 days after the start of a menstrual period or 6 weeks after delivery of a baby. Talk to your greeting card editor regarding the use of this medicine in children. Special care may be needed. These injections have been used in female children who have started having menstrual periods. What side effects may I notice from receiving this medicine? Side effects that you should report to your doctor or health home health care respiratory therapist as soon as possible: allergic reactions like skin rash, itching or hives, swelling of the face, lips, or tongue breast tenderness or discharge breathing problems changes in vision depression feeling faint or lightheaded, falls fever pain in the abdomen, chest, groin, or leg problems with balance, talking, walking unusually weak or tired yellowing of the eyes or skin Side effects that usually do not require medical attention (report to your doctor or health home health care respiratory therapist if they continue or are bothersome): acne fluid retention and swelling headache irregular periods, spotting, or absent periods temporary pain, itching, or skin reaction at site where injected weight gain What may interact with this medicine? Do not take this medicine with any of the following medications: bosentan This medicine may also interact with the following medications: aminoglutethimide antibiotics or medicines for infections, especially rifampin, rifabutin, rifapentine, and griseofulvin aprepitant barbiturate medicines such as phenobarbital or primidone bexarotene carbamazepine medicines for seizures like ethotoin, felbamate, oxcarbazepine, phenytoin, topiramate modafinil [place] wort What if I miss a dose? Try not to miss a dose. You must get an injection once every 3 months to maintain control. If you cannot keep an appointment, call and reschedule it. If you wait longer than 13 weeks between Depo-Provera contraceptive injections or longer than 14 weeks between Depo-subQ Provera 104 injections, you could get . Use another method for control if you miss your appointment. You may also need a test before receiving another injection. Where should I keep my medicine? This does not apply. The injection will be given to you by a health home health care respiratory therapist. What should I tell my health care provider before I take this medicine? They need to know if you have any of these conditions: frequently drink alcohol asthma blood vessel disease or a history of a blood clot in the lungs or legs bone disease such as osteoporosis breast cancer diabetes eating disorder (anorexia nervosa or bulimia) high blood pressure HIV infection or AIDS kidney disease liver disease mental depression migraine seizures (convulsions) stroke tobacco smoker vaginal bleeding an unusual or allergic reaction to medroxyprogesterone, other hormones, medicines, foods, dyes, or preservatives or trying to get breast-feeding What should I watch for while using this medicine? This drug does not protect you against HIV infection (AIDS) or other sexually transmitted diseases. Use of this product may cause you to lose calcium from your bones. Loss of calcium may cause weak bones (osteoporosis). Only use this product for more than 2 years if other forms of control are not right for you. The longer you use this product for control the more likely you will be at risk for weak bones. Ask your health home health care respiratory therapist how you can keep strong bones. You may have a change in bleeding pattern or irregular periods. Many females stop having periods while taking this drug. If you have received your injections on time, your chance of being is very low. If you think you may be , see your health home health care respiratory therapist as soon as possible. Tell your health home health care respiratory therapist if you want to get within the next year. The effect of this medicine may last a long time after you get your last injection. NOTE:This sheet is a summary. It may not cover all possible information. If you have questions aboutthis medicine, talk to your doctor, pharmacist, or health care provider. Copyright 2018 [employer] documented in this encounter Progress Notes Rahel Veras RN - 01/27/2020 1:00 PM CDT24 year old female has been identified by and name. Verbal consent has been obtained by patientto have an injection of Depo Provera, as ordered by the provider. Date of last Depo Provera injection: 11/04/19 Last WWE: 11/04/2019 Encounter Diagnosis: v25.49 The site was cleaned with an alcohol swab and given intramuscularly (IM) in the right deltoid. A band aid dressing was then applied to the injection site. The patient tolerated the procedure well. Advised patient on Calcium intake 500-1200 mg daily. ED warnings given. Patient to return to clinic in 12 weeks for next Depo. Patient verbalized understanding. Rahel Veras RN 01/27/2020 1:45 PM documented in this encounter Plan of Treatment Date Type Specialty Care Team Description 04/20/2020 Nurse Visit OB Satell[facility] Visit, [facility] Nurse Health Maintenance Due Date Last Done Comments HPV VACCINES (1 - 2-dose 02/20/2020 Postpon ed from series) 2006 (Refu sed) PAP SMEAR 02/26/2020 02/25/2019, 11/26/2017 INFLUENZA VACCINE (#1) 2020 01/30/2018 Postponed from 12/29/2019 (Evonne ent Does Not Have Ti me) Depression Screening 08/11/2020 08/12/2019 CHLAMYDIA SCREENING 11/03/2020 11/04/2019, 11/04/2019, 09/04/2018, Additional history exists DTaP,Tdap,and Td Vaccines 03/06/2028 03/06/2018 (2 - Td) PNEUMOCOCCAL 0-64 YEARS Aged Out No longe r eligible COMBINED SERIES based on patient 's age to complete this topic documented as of this encounter Results Not on filedocumented in this encounter Visit Diagnoses Diagnosis Depo-Provera contraceptive status - Prim ginny Surveillance of other previously prescri bed contraceptive method documented in this encounter Administered Medications Medication Order MAR Action Action Date Dose Rate Site medroxyPROGESTERone Given 01/27/2020 1:43 150 mg Right (DEPO-PROVERA) injection 150 PM CDT Deltoid-IM mg 150 mg, Intramuscular, [id number], 4 doses, First dose on Sat11/04/19 at 1045, Last dose on Sat07/13/20 at 1045, Routine Given 11/04/2019 10:42 AM CDT 150 mg Left Deltoid-IM documented in this encounter Insurance Payer Benefit Plan Subscriber ID Effective Phone Address Typ e / Group Dates [facility] [id number] 2019-Prese [phone] Medicaid WOMEN [address] [place] [address] documented as of this encounter Advance Directives Name Relationship Healthcare Agent Relationship Co mmunication Francis Ahmadi Spouse Health Care Agent Jakub Baldwin Grandparent [facility] Health Care Agent (Mobile)
--- OUTSIDE RECORDS SUMMARY | 2020-02-04 22:38 | XMS REPORT | Continuity of Care Document ---
:1995 Author Organization [facility] t Address [address] [place] [address] Care Team Providers Name Role Phone Visit, Nurse Attending Clinician Unavailable Xena Joseph Attending Clinician Problems This patient has no known problems. Allergies, Adverse Reactions, Alerts This patient has no known allergies or adverse reactions. Medications This patient has no known medications. Procedures This patient has no known procedures. Encounters Start End Encounter Admission Attending Care Care Encounter Source Date/Time Date/Time Type Type Clinicians Facility Department ID 2020-01-27 2020-01-27 Nurse Visit, [facility] [id number] 13:04:26 13:45:06 Visit Chriss [facility] [id number] Nurse REGIONAL [id number] MATERNAL [id number] & CHILD 107 [facility] 2019-11-04 2019-11-04 Office JOSH Joyner [id number] 09:43:58 10:49:54 Visit Erica Mccallum [facility] [id number] [facility] [id number] MATERNAL [id number] & CHILD 107 [facility] Results This patient has no known results.
== END 2020-02-03 23:36 | disposition left against medical advice (07) ==
LOC: ER 22:28
DX: Z53.21 Procedure and treatment not carried out due to patient leaving prior to being seen by health care provider (principal)
CPT/HCPCS: 99281

== ENCOUNTER 2022-12-30 20:42 | Emergency (ER) | payer SELFPAY ==
--- OUTSIDE RECORDS SUMMARY | 2022-12-30 21:26 | XMS REPORT | Continuity of Care Document ---
:1995 Author Organization [facility] t Address [address] [facility] [address] [place] [address] Care Team Providers Name Role Phone Alessandra Jean Primary Care Physician [phone] SHIRLEY ROQUE Attending Clinician Unavailable Visit, [facility] Nurse Attending Clinician Unavailable Shirley Roque CNM Attending Clinician Alessandra Jean Attending Clinician [phone] ALESSANDRA TRINIDAD Attending Clinician Unavailable ERICA MEDINA Attending Clinician Unavailable Erica Joseph Attending Clinician Doctor Unassigned, [place] Attending Clinician Unavailable TYLER GUAJARDO Attending Clinician Unavailable Tyler Guajardo DO Attending Clinician Payers Payer Name Policy Type Policy Number Effective Date Expiration Date S buck [facility] [id number] 2019 00:00:00 Problems Condition Condition Condition Status Onset Resolution Last Treating Co mments Source Name Details Category Date Date Treatment Clinician Date Well woman Well woman Disease Active U nivers exam exam 7-08 ity of 00:00: [place] 00 [facility] Branch Papanicola Papanicola Disease Active 2018-04 U nivers ou smear ou smear 0-30 [place] of [place] low with low 00 Medica l 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) Encounter Encounter Disease Active Uni vers for for 09-04 ity of surve[place] ce of 00 Medical injectable injectable Br anch contracept contracept luis luis Other Other Disease Active Univers general general 09-04 [place] of counseling [place] and advice and advice 00 Me dical for for Branch contracept contracept luis luis management management Morbid Morbid Disease Active Univers obesity obesity 09-04 ity of 00:00: [place] 00 [facility] Encounter Encounter Disease Active Uni vers for for 09-04 [place]y of surveillan [place]an [place] of 00 Medical injectable injectable Br anch contracept contracept luis luis BMI BMI Disease Active Univers 38.0-38.9, 38.0-38.9, 09-04 it y of adult adult 00:00: [place] 00 Medical Branch 39 weeks 39 weeks Disease Active Unive rs gestation gestation 2-07 ity of of of 00:00: [place] [facility] Branch Class 2 Class 2 Disease Active Univers obesity obesity 2-07 ity of due to due to 00:00: [place] excess excess 00 Medical calories calories Branch with body with body mass index mass index (BMI) of (BMI) of 38.0 to 38.0 to 38.9 in 38.9 in adult, adult, unspecifie unspecifie d whether d whether serious serious comorbidit comorbidit y present y present Excessive Excessive Disease Active Uni vers weight weight 1-14 ity of gain gain 00:00: [place] during during 00 Medical , , Br anch antepartum antepartum Supervisio Supervisio Disease Active U nivers n of n of 7-06 ity of high-risk high-risk 00:[place] [facility] with with Branch history of history of in first in first trimester trimester Rh Rh Disease Active 2016-04 Univers negative negative 2-27 ity of state in state in 00:00: [place] antepartum antepartum 00 Sc dical period period Branch Allergies, Adverse Reactions, Alerts Allergy Allergy Status Severity Reaction(s) Onset Inactive Treating Comm ents Source Name Type Date Date Clinician NO KNOWN Drug Active Univers ALLERGIE Class ity of S [facility] Social History Social Habit Start Date Stop Date Quantity Comments Source Gender identity Universit y of [facility] Sexual orientation Univer sity [facility] Exposure to 2022-06-17 2022-06-27 Not sure University SARS-CoV-2 (event) 00:00:00 13:23:00 [facility] Alcohol intake 2022-06-27 2022-06-27 Current University of 00:00:00 00:00:00 non-drinker of [facility] alcohol [place] (finding) History of Social 2022-06-27 2022-06-27 Univers ity of function 00:00:00 00:00:00 [facility] Tobacco use and 2022-04-03 2022-04-03 Smokeless Universit y of exposure 00:00:00 00:00:00 tobacco non-user [facility] [place] [facility] Sex Assigned At [birth year] Universit y of 00:00:00 00:00:00 [facility] Smoking Status Start Date Stop Date Source Never smoked tobacco [facility] Medications Ordered Filled Start Stop Current Ordering Indication Dosage Frequency Signature Comments Components Source Medication Medication Date Date Medication? Clinician (SIG) Name Name medroxyPROG 2021-04- No [id number] 150mg Univers ESTERone 06-04 ity of (DEPO-PROVE 21:45: 21:44 [place] RA) syringe 00 :00 Medical 150 mg Branch medroxyPROG 2021-04- No [id number] 150mg 150 mg, Univers ESTERone 06-04 Intramuscu ity of (DEPO-PROVE 21:45: 21:44 lar, [place] RA) syringe 00 :00 [id number], Med ical 150 mg 4 doses, Branch First dose on Sat04/03/22 at 1545, Last dose on Sat12/11/22 at 1545, Routine medroxyPROG 2021-04- No [id number] 150mg Univers ESTERone 2-06 11-07 ity of (DEPO-PROVE 21:45: 21:44 [place] RA) syringe 00 :00 Medical 150 mg Branch medroxyPROG 2021-04- No [id number] 150mg 150 mg, Univers ESTERone 06-04 Intramuscu ity of (DEPO-PROVE 21:45: 21:44 lar, [place] RA) syringe 00 :00 [id number], Med ical 150 mg 4 doses, Branch First dose on Sat04/03/22 at 1545, Last dose on Sat12/11/22 at 1545, Routine medroxyPROG 2021-04- No [id number] 150mg Univers ESTERone 06-04 ity of (DEPO-PROVE 21:45: 21:44 [place] RA) syringe 00 :00 Medical 150 mg Branch medroxyPROG 2021-04- No [id number] 150mg Univers ESTERone 06-04 ity of (DEPO-PROVE 21:45: 21:44 [place] RA) syringe 00 :00 Medical 150 mg Branch medroxyPROG 2021-04- No [id number] 150mg 150 mg, Univers ESTERone 06-04 Intramuscu ity of (DEPO-PROVE 21:45: 21:44 lar, [place] RA) syringe 00 :00 [id number], Med ical 150 mg 4 doses, Branch First dose on Sat04/03/22 at 1545, Last dose on Sat12/11/22 at 1545, Routine medroxyPROG 2021-04- No [id number] 150mg Univers ESTERone 06-04 ity of (DEPO-PROVE 21:45: 21:44 [place] RA) syringe 00 :00 Medical 150 mg Branch medroxyPROG 2021-04- No [id number] 150mg 150 mg, Univers ESTERone 06-04 Intramuscu ity of (DEPO-PROVE 21:45: 21:44 lar, [place] RA) syringe 00 :00 [id number], Med ical 150 mg 4 doses, Branch First dose on Sat04/03/22 at 1545, Last dose on Sat12/11/22 at 1545, Routine medroxyPROG 2021-04- No [id number] 150mg 150 mg, Univers ESTERone 06-04 Intramuscu ity of (DEPO-PROVE 21:45: 14:27 lar, [place] RA) syringe 00 :00 [id number], Med ical 150 mg 4 doses, Branch First dose on Sat04/03/22 at 1545, Last dose on Sat12/11/22 at 1545, Routine medroxyPROG 2021-2021- No [id number] 150mg Univers ESTERone 01-03 ity of (DEPO-PROVE 19:45: 18:58 [place] RA) syringe 00 :00 Medical 150 mg Branch medroxyPROG 2021-2021- No [id number] 150mg 150 mg, Univers ESTERone 01-03 Intramuscu ity of (DEPO-PROVE 19:45: 18:58 lar, ONCE, [place] RA) syringe 00 :00 1 dose, On Me dical 150 mg 01/03/22 Branch at 1445, Routine medroxyPROG 2021- No [id number] 150mg Univers ESTERone 01-16 ity of (DEPO-PROVE 15:15: 15:14 [place] RA) 00 :00 Medical injection Branch 150 mg medroxyPROG 2021- No [id number] 150mg 150 mg, Univers ESTERone 01-16 Intramuscu ity of (DEPO-PROVE 15:15: 15:14 lar, [place] RA) 00 :00 [id number], Medical injection 4 doses, Branch 150 mg First dose on Sat01/16/21 at 1015, Last dose on Sat09/25/21 at 1015, Routine medroxyPROG 2021- No [id number] 150mg Univers ESTERone 01-16 ity of (DEPO-PROVE 15:15: 15:14 [place] RA) 00 :00 Medical injection Branch 150 mg medroxyPROG 2020-2021- No [id number] 150mg 150 mg, Univers ESTERone 01-16 Intramuscu ity of (DEPO-PROVE 15:15: 15:14 lar, [place] RA) 00 :00 [id number], Medical injection 4 doses, Branch 150 mg First dose on Sat01/16/21 at 1015, Last dose on Sat09/25/21 at 1015, Routine medroxyPROG 2020-2021- No [id number] 150mg Univers ESTERone 01-16 ity of (DEPO-PROVE 15:15: 15:14 [place] RA) 00 :00 Medical injection Branch 150 mg medroxyPROG 2020-0 2021- No [id number] 150mg Univers ESTERone 01-16 ity of (DEPO-PROVE 15:15: 15:14 [place] RA) 00 :00 Medical injection Branch 150 mg medroxyPROG 2021- No [id number] 150mg 150 mg, Univers ESTERone 01-16 Intramuscu ity of (DEPO-PROVE 15:15: 15:14 lar, [place] RA) 00 :00 [id number], Medical injection 4 doses, Branch 150 mg First dose on Sat01/16/21 at 1015, Last dose on Sat09/25/21 at 1015, Routine medroxyPROG 2020-2021- No [id number] 150mg Univers ESTERone 01-16 ity of (DEPO-PROVE 15:15: 15:14 [place] RA) 00 :00 Medical injection Branch 150 mg medroxyPROG 2021- No [id number] 150mg 150 mg, Univers ESTERone 01-16 Intramuscu ity of (DEPO-PROVE 15:15: 15:14 lar, [place] RA) 00 :00 [id number], Medical injection 4 doses, Branch 150 mg First dose on Sat01/16/21 at 1015, Last dose on Sat09/25/21 at 1015, Routine medroxyPROG 2021- No [id number] 150mg Univers ESTERone 01-16 ity of (DEPO-PROVE 15:15: 15:14 [place] RA) 00 :00 Medical injection Branch 150 mg medroxyPROG 2021- No [id number] 150mg 150 mg, Univers ESTERone 01-16 Intramuscu ity of (DEPO-PROVE 15:15: 15:14 lar, [place] RA) 00 :00 [id number], Medical injection 4 doses, Branch 150 mg First dose on Sat01/16/21 at 1015, Last dose on Sat09/25/21 at 1015, Routine medroxyPROG 2021- No [id number] 150mg Univers ESTERone 01-16 ity of (DEPO-PROVE 15:15: 15:14 [place] RA) 00 :00 Medical injection Branch 150 mg medroxyPROG 2021- No [id number] 150mg 150 mg, Univers ESTERone 01-16 Intramuscu ity of (DEPO-PROVE 15:15: 15:14 lar, [place] RA) 00 :00 [id number], Medical injection 4 doses, Branch 150 mg First dose on Sat01/16/21 at 1015, Last dose on Sat09/25/21 at 1015, Routine medroxyPROG 2021- No [id number] 150mg Univers ESTERone 01-16 ity of (DEPO-PROVE 15:15: 13:51 [place] RA) 00 :00 Medical injection Branch 150 mg medroxyPROG 2021- No [id number] 150mg 150 mg, Univers ESTERone 01-16 Intramuscu ity of (DEPO-PROVE 15:15: 13:51 lar, [place] RA) 00 :00 [id number], Medical injection 4 doses, Branch 150 mg First dose on Sat01/16/21 at 1015, Last dose on Sat09/25/21 at 1015, Routine No known No No known Unive rs medications 01-16 medication it y of 10:00: s [place] 56 Medical Branch medroxyPROG 2020- No [id number] 150mg Univers ESTERone 10-19 ity of (DEPO-PROVE 19:45: 18:36 [place] RA) 00 :00 Medical injection Branch 150 mg medroxyPROG 2020- No [id number] 150mg 150 mg, Univers ESTERone 10-19- Intramuscu ity of (DEPO-PROVE 19:45: 18:36 lar, ONCE, [place] RA) 00 :00 1 dose, Medical injection Wed Branch 150 mg 10/19/20 at 1445, Routine medroxyPROG 2020- No [id number] 150mg Univers ESTERone 11-03 06-09 ity of (DEPO-PROVE 15:45: 15:44 [place] RA) 00 :00 Medical injection Branch 150 mg medroxyPROG 2020-0 2020- No [id number] 150mg 150 mg, Univers ESTERone 11-03 Intramuscu ity of (DEPO-PROVE 15:45: 15:44 lar, [place] RA) 00 :00 [id number], Medical injection 4 doses, Branch 150 mg First dose on Sat11/04/19 at 1045, Last dose on Sat07/13/20 at 1045, Routine medroxyPROG 2020-0 2020- No [id number] 150mg Univers ESTERone 11-03 ity of (DEPO-PROVE 15:45: 15:44 [place] RA) 00 :00 Medical injection Branch 150 mg medroxyPROG 2020-0 2020- No [id number] 150mg 150 mg, Univers ESTERone 11-03- Intramuscu ity of (DEPO-PROVE 15:45: 15:44 lar, [place] RA) 00 :00 [id number], Medical injection 4 doses, Branch 150 mg First dose on Sat11/04/19 at 1045, Last dose on Sat07/13/20 at 1045, Routine medroxyPROG 2020-0 2020- No [id number] 150mg Univers ESTERone 11-03 ity of (DEPO-PROVE 15:45: 15:44 [place] RA) 00 :00 Medical injection Branch 150 mg medroxyPROG 2020-0 2020- No [id number] 150mg 150 mg, Univers ESTERone 11-03- Intramuscu ity of (DEPO-PROVE 15:45: 15:44 lar, [place] RA) 00 :00 [id number], Medical injection 4 doses, Branch 150 mg First dose on Sat11/04/19 at 1045, Last dose on Sat07/13/20 at 1045, Routine medroxyPROG 2020-0 2020- No [id number] 150mg Univers ESTERone 11-03 ity of (DEPO-PROVE 15:45: 15:44 [place] RA) 00 :00 Medical injection Branch 150 mg medroxyPROG 2020-0 2020- No [id number] 150mg 150 mg, Univers ESTERone 11-03- Intramuscu ity of (DEPO-PROVE 15:45: 15:44 lar, [place] RA) 00 :00 [id number], Medical injection 4 doses, Branch 150 mg First dose on Sat11/04/19 at 1045, Last dose on Sat07/13/20 at 1045, Routine medroxyPROG 2020-0 2020- No [id number] 150mg Univers ESTERone 11-03 ity of (DEPO-PROVE 15:45: 15:44 [place] RA) 00 :00 Medical injection Branch 150 mg medroxyPROG 2020-0 2020- No [id number] 150mg Univers ESTERone 11-03 ity of (DEPO-PROVE 15:45: 15:44 [place] RA) 00 :00 Medical injection Branch 150 mg medroxyPROG 2020-0 2020- No [id number] 150mg 150 mg, Univers ESTERone 11-03 Intramuscu ity of (DEPO-PROVE 15:45: 18:45 lar, [place] RA) 00 :00 [id number], Medical injection 4 doses, Branch 150 mg First dose on Sat11/04/19 at 1045, Last dose on Sat07/13/20 at 1045, Routine medroxyPROG 2019-2019- No 150mg Univ ers ESTERone 08-11-15 ity of (DEPO-PROVE 15:15: 14:25 [place] RA) 00 :00 Medical injection Branch 150 mg medroxyPROG 2020-0 2020- No 150mg 150 mg, U nivers ESTERone 08-11-15 Intramuscu ity of (DEPO-PROVE 15:15: 14:25 lar, ONCE, [place] RA) 00 :00 1 dose, Medical injection Wed Branch 150 mg 08/12/19 at 1015, Routine medroxyPROG 2019-0 2020- No [id number] 150mg Univers ESTERone 09-04- ity of (DEPO-PROVE 18:45: 18:44 [place] RA) 00 :00 Medical injection Branch 150 mg medroxyPROG 2019-0 2020- No [id number] 150mg Univers ESTERone -12 31- ity of (DEPO-PROVE 18:45: 18:44 [place] RA) 00 :00 Medical injection Branch 150 mg medroxyPROG 2019-0 2020- No [id number] 150mg 150 mg, Univers ESTERone 09-04- Intramuscu ity of (DEPO-PROVE 18:45: 18:44 lar, [place] RA) 00 :00 [id number], Medical injection 4 doses, Branch 150 mg First dose on [place] 09/04/18 at 1345, Last dose on [place] 05/14/19 at 1345, Routine medroxyPROG 2019- 2020- No [id number] 150mg Univers ESTERone 09-04 ity of (DEPO-PROVE 18:45: 18:44 [place] RA) 00 :00 Medical injection Branch 150 mg medroxyPROG 2018- 2020- No [id number] 150mg 150 mg, Univers ESTERone 09-04 Intramuscu ity of (DEPO-PROVE 18:45: 18:44 lar, [place] RA) 00 :00 [id number], Medical injection 4 doses, Branch 150 mg First dose on [place] 09/04/18 at 1345, Last dose on [place] 05/14/19 at 1345, Routine medroxyPROG 2018- 2020- No [id number] 150mg Univers ESTERone 09-04 ity of (DEPO-PROVE 18:45: 17:03 [place] RA) 00 :00 Medical injection Branch 150 mg medroxyPROG 2018- 2020- No [id number] 150mg 150 mg, Univers ESTERone 09-04 Intramuscu ity of (DEPO-PROVE 18:45: 17:03 lar, [place] RA) 00 :00 [id number], Medical injection 4 doses, Branch 150 mg First dose on [place] 09/04/18 at 1345, Last dose on [place] 05/14/19 at 1345, Routine No known No Univers medications ity of [facility] No known No Univers medications ity of [facility] Immunizations Ordered Filled Immunization Date Status Comments [facility] e Immunization Name Name Rho (d) Immune 2018-03-19 Completed University of Globulin 00:00:00 [facility] Rho (d) Immune 2018-03-19 Completed University of Globulin 00:00:00 [facility] Rho (d) Immune 2018-03-19 Completed University of Globulin 00:00:00 [facility] Rho (d) Immune 2018-03-19 Completed University of Globulin 00:00:00 [facility] Rho (d) Immune 2018-03-19 Completed University of Globulin 00:00:00 [facility] Rho (d) Immune 2018-03-19 Completed University of Globulin 00:00:00 [place] [facility] Rho (d) Immune 2018-03-19 Completed University of Globulin 00:00:00 [facility] Branch Rho (d) Immune 2018-03-19 Completed University of Globulin 00:00:00 [facility] Branch Rho (d) Immune 2018-03-19 Completed University of Globulin 00:00:00 [facility] Branch Rho (d) Immune 2018-03-19 Completed University of Globulin 00:00:00 [facility] Branch Rho (d) Immune 2018-03-19 Completed University of Globulin 00:00:00 [facility] Branch Rho (d) Immune 2018-03-19 Completed University of Globulin 00:00:00 [facility] Branch Rho (d) Immune 2018-03-19 Completed University of Globulin 00:00:00 [facility] Branch Rho (d) Immune 2018-03-19 Completed University of Globulin 00:00:00 [facility] Branch Rho (d) Immune 2018-03-19 Completed University of Globulin 00:00:00 [facility] Branch Rho (d) Immune 2018-03-19 Completed University of Globulin 00:00:00 [facility] Branch Rho (d) Immune 2018-03-19 Completed University of Globulin 00:00:00 [facility] Branch Rho (d) Immune 2018-03-19 Completed University of Globulin 00:00:00 [facility] Branch Rho (d) Immune 2018-03-19 Completed University of Globulin 00:00:00 [facility] Branch Rho (d) Immune 2018-03-19 Completed University of Globulin 00:00:00 [facility] Branch Rho (d) Immune 2018-03-19 Completed University of Globulin 00:00:00 [facility] Branch Rho (d) Immune 2018-03-19 Completed University of Globulin 00:00:00 [facility] Branch Rho (d) Immune 2018-03-19 Completed University of Globulin 00:00:00 [facility] Branch Rho (d) Immune 2018-03-19 Completed University of Globulin 00:00:00 [facility] Branch Rho (d) Immune 2018-03-19 Completed University of Globulin 00:00:00 [facility] Branch Rho (d) Immune 2018-03-19 Completed University of Globulin 00:00:00 [facility] Branch Rho (d) Immune 2018-03-19 Completed University of Globulin 00:00:00 [facility] Branch Rho (d) Immune 2018-03-19 Completed University of Globulin 00:00:00 [facility] Branch Rho (d) Immune 2018-03-19 Completed University of Globulin 00:00:00 [facility] Rho (d) Immune 2018-03-19 Completed University of Globulin 00:00:00 [facility] Tdap 2018-03-06 Completed University of 00:00:00 [facility] Branch Tdap 2018-03-06 Completed University of 00:00:00 [facility] Tdap 2018-03-06 Completed University of 00:00:00 [facility] TDAP 2018-03-06 Completed University of 00:00:00 [facility] Branch TDAP 2018-03-06 Completed University of 00:00:00 [facility] Branch TDAP 2018-03-06 Completed University of 00:00:00 [facility] TDAP 2018-03-06 Completed University of 00:00:00 [facility] Branch TDAP 2018-03-06 Completed University of 00:00:00 [facility] Branch TDAP 2018-03-06 Completed University of 00:00:00 [facility] TDAP 2018-03-06 Completed University of 00:00:00 [facility] TDAP 2018-03-06 Completed University of 00:00:00 [facility] Branch TDAP 2018-03-06 Completed University of 00:00:00 [facility] Branch TDAP 2018-03-06 Completed University of 00:00:00 [facility] Branch TDAP 2018-03-06 Completed University of 00:00:00 [facility] Branch TDAP 2018-03-06 Completed University of 00:00:00 [facility] Branch TDAP 2018-03-06 Completed University of 00:00:00 [facility] TDAP 2018-03-06 Completed University of 00:00:00 [facility] Branch TDAP 2018-03-06 Completed University of 00:00:00 [facility] Branch TDAP 2018-03-06 Completed University of 00:00:00 [facility] Branch TDAP 2018-03-06 Completed University of 00:00:00 [facility] Branch TDAP 2018-03-06 Completed University of 00:00:00 [facility] Branch TDAP 2018-03-06 Completed University of 00:00:00 [facility] Branch TDAP 2018-03-06 Completed University of 00:00:00 [facility] Branch TDAP 2018-03-06 Completed University of 00:00:00 [facility] TDAP 2018-03-06 Completed University of 00:00:00 [facility] Branch TDAP 2018-03-06 Completed University of 00:00:00 [facility] TDAP 2018-03-06 Completed University of 00:00:00 [place] [facility] TDAP 2018-03-06 Completed University of 00:00:00 [place] [facility] [place] Tdap 2018-03-06 Completed University of 00:00:00 [place] [facility] [place] Tdap 2018-03-06 Completed University of 00:00:00 [facility] Influenza Virus 2018-01-30 Completed Universit y of Vaccine Quad .5 mL 00:00:00 [place] [facility] IM 6+ MO Branch Influenza Virus 2018-01-30 Completed Universit y of Vaccine [place] .5 mL 00:00:00 [place] [facility] IM 6+ MO Branch Influenza Virus 2018-01-30 Completed Universit y of Vaccine [place] .5 mL 00:00:00 [place] [facility] IM 6+ MO Branch Influenza Virus 2018-01-30 Completed Universit y of Vaccine [place] .5 mL 00:00:00 [place] [facility] IM 6+ MO Branch Influenza Virus 2018-01-30 Completed Universit y of Vaccine [place] .5 mL 00:00:00 [place] [facility] IM 6+ MO Branch Influenza Virus 2018-01-30 Completed Universit y of Vaccine Quad .5 mL 00:00:00 [place] [facility] IM 6+ MO Branch Influenza Virus 2018-01-30 Completed Universit y of Vaccine [place] .5 mL 00:00:00 [place] [facility] IM 6+ MO Branch Influenza Virus 2018-01-30 Completed Universit y of Vaccine Quad .5 mL 00:00:00 [place] [facility] IM 6+ MO Branch Influenza Virus 2018-01-30 Completed Universit y of Vaccine [place] .5 mL 00:00:00 [place] [facility] IM 6+ MO Branch Influenza Virus 2018-01-30 Completed Universit y of Vaccine [place] .5 mL 00:00:00 [place] [facility] IM 6+ MO Branch Influenza Virus 2018-01-30 Completed Universit y of Vaccine [place] .5 mL 00:00:00 [place] [facility] IM 6+ MO Branch Influenza Virus 2018-01-30 Completed Universit y of Vaccine [place] .5 mL 00:00:00 [place] [facility] IM 6+ MO Branch Influenza Virus 2018-01-30 Completed Universit y of Vaccine [place] .5 mL 00:00:00 [place] [facility] IM 6+ MO Branch Influenza Virus 2018-01-30 Completed Universit y of Vaccine [place] .5 mL 00:00:00 [place] [facility] IM 6+ MO Branch Influenza Virus 2018-01-30 Completed Universit y of Vaccine [place] .5 mL 00:00:00 [place] [facility] IM 6+ MO Branch Influenza Virus 2018-01-30 Completed Universit y of Vaccine [place] .5 mL 00:00:00 [place] [facility] IM 6+ MO Branch Influenza Virus 2018-01-30 Completed Universit y of Vaccine [place] .5 mL 00:00:00 [place] [facility] IM 6+ MO Branch Influenza Virus 2018-01-30 Completed Universit y of Vaccine [place] .5 mL 00:00:00 [place] [facility] IM 6+ MO Branch Influenza Virus 2018-01-30 Completed Universit y of Vaccine Quad .5 mL 00:00:00 [place] [facility] IM 6+ MO Branch Influenza Virus 2018-01-30 Completed Universit y of Vaccine Quad .5 mL 00:00:00 [place] [facility] IM 6+ MO Branch Influenza Virus 2018-01-30 Completed Universit y of Vaccine [place] .5 mL 00:00:00 [place] [facility] IM 6+ MO Branch Influenza Virus 2018-01-30 Completed Universit y of Vaccine [place] .5 mL 00:00:00 [place] [facility] IM 6+ MO Branch Influenza Virus 2018-01-30 Completed Universit y of Vaccine [place] .5 mL 00:00:00 [place] [facility] IM 6+ MO Branch Influenza Virus 2018-01-30 Completed Universit y of Vaccine Quad .5 mL 00:00:00 [place] [facility] IM 6+ MO Branch Influenza Virus 2018-01-30 Completed Universit y of Vaccine Quad .5 mL 00:00:00 [place] [facility] IM 6+ MO Branch Influenza Virus 2018-01-30 Completed Universit y of Vaccine Quad .5 mL 00:00:00 [place] [facility] IM 6+ MO Branch Influenza Virus 2018-01-30 Completed Universit y of Vaccine Quad .5 mL 00:00:00 [place] [facility] IM 6+ MO Branch Influenza Virus 2018-01-30 Completed Universit y of Vaccine Quad .5 mL 00:00:00 [place] [facility] IM 6+ MO Branch Influenza Virus 2018-01-30 Completed Universit y of Vaccine Quad .5 mL 00:00:00 [place] [facility] IM 6+ MO Branch Influenza Virus 2018-01-30 Completed Universit y of Vaccine Quad .5 mL 00:00:00 [place] [facility] [place] [facility] Vital Signs Vital Name Observation Time Observation Value Comments Source Systolic blood 2022-12-26 14:02:00 128 mm[Hg] Univer sity of pressure [facility] Diastolic blood 2022-12-26 14:02:00 74 mm[Hg] Unive rsity of pressure [facility] Heart rate 2022-12-26 14:02:00 76 /min [facility] Body temperature 2022-12-26 14:02:00 36.06 Jocelyne [facility] Respiratory rate 2022-12-26 14:02:00 18 /min [facility] Body height 2022-12-26 14:02:00 160 cm [facility] Body weight 2022-12-26 14:02:00 105.597 kg [facility] BMI 2022-12-26 14:02:00 41.24 kg/m2 [facility] Systolic blood 2022-09-27 19:28:00 126 mm[Hg] Univer sity of pressure [facility] Diastolic blood 2022-09-27 19:28:00 69 mm[Hg] Unive rsity of pressure [facility] Heart rate 2022-09-27 19:28:00 82 /min [facility] Body temperature 2022-09-27 19:28:00 36.06 Jocelyne [facility] Respiratory rate 2022-09-27 19:28:00 18 /min [facility] Body height 2022-09-27 19:28:00 160 cm [facility] Body weight 2022-09-27 19:28:00 106.55 kg [facility] BMI 2022-09-27 19:28:00 41.61 kg/m2 [facility] Systolic blood 2022-06-27 19:32:00 110 mm[Hg] Univer sity of pressure [facility] Diastolic blood 2022-06-27 19:32:00 71 mm[Hg] Unive rsity of pressure [facility] Heart rate 2022-06-27 19:32:00 84 /min [facility] Body temperature 2022-06-27 19:32:00 36.61 Jocelyne [facility] Respiratory rate 2022-06-27 19:32:00 18 /min [facility] Body height 2022-06-27 19:32:00 160 cm [facility] Body weight 2022-06-27 19:32:00 109.816 kg [facility] BMI 2022-06-27 19:32:00 42.89 kg/m2 [facility] Systolic blood 2022-04-03 19:59:00 118 mm[Hg] Univer sity of pressure [facility] Diastolic blood 2022-04-03 19:59:00 75 mm[Hg] Unive rsity of pressure [facility] Heart rate 2022-04-03 19:59:00 88 /min [facility] Body temperature 2022-04-03 19:59:00 36.5 Jocelyne [facility] Respiratory rate 2022-04-03 19:59:00 20 /min [facility] Body height 2022-04-03 19:59:00 160 cm [facility] Body weight 2022-04-03 19:59:00 107.673 kg [facility] BMI 2022-04-03 19:59:00 42.05 kg/m2 [facility] Systolic blood 2022-01-03 18:54:00 113 mm[Hg] Univer sity of pressure [facility] Diastolic blood 2022-01-03 18:54:00 77 mm[Hg] Unive rsity of pressure [facility] Heart rate 2022-01-03 18:54:00 85 /min [facility] Body temperature 2022-01-03 18:54:00 36.28 Jocelyne [facility] Respiratory rate 2022-01-03 18:54:00 20 /min [facility] Body height 2022-01-03 18:54:00 160 cm [facility] Body weight 2022-01-03 18:54:00 110.179 kg [facility] BMI 2022-01-03 18:54:00 43.03 kg/m2 [facility] Systolic blood 2021-10-06 13:43:00 127 mm[Hg] Univer sity of pressure [facility] Diastolic blood 2021-10-06 13:43:00 81 mm[Hg] Unive rsity of pressure [facility] Heart rate 2021-10-06 13:43:00 90 /min [facility] Body temperature 2021-10-06 13:43:00 36.56 Jocelyne [facility] Respiratory rate 2021-10-06 13:43:00 20 /min [facility] Body height 2021-10-06 13:43:00 160 cm [facility] Body weight 2021-10-06 13:43:00 112.719 kg [facility] BMI 2021-10-06 13:43:00 44.02 kg/m2 [facility] Systolic blood 2021-07-07 19:54:00 126 mm[Hg] Univer sity of pressure [facility] Diastolic blood 2021-07-07 19:54:00 85 mm[Hg] Unive rsity of pressure [facility] Heart rate 2021-07-07 19:54:00 94 /min [facility] Body temperature 2021-07-07 19:54:00 36.56 Jocelyne [facility] Respiratory rate 2021-07-07 19:54:00 18 /min [facility] Body height 2021-07-07 19:54:00 160 cm [facility] Body weight 2021-07-07 19:54:00 109.408 kg [facility] BMI 2021-07-07 19:54:00 42.73 kg/m2 [facility] Systolic blood 2021-04-10 19:11:00 110 mm[Hg] Univer sity of pressure [facility] Diastolic blood 2021-04-10 19:11:00 64 mm[Hg] Unive rsity of pressure [facility] Heart rate 2021-04-10 19:11:00 96 /min [facility] Body temperature 2021-04-10 19:11:00 36.78 Jocelyne [facility] Respiratory rate 2021-04-10 19:11:00 18 /min [facility] Body height 2021-04-10 19:11:00 162.6 cm [facility] Body weight 2021-04-10 19:11:00 109.544 kg [facility] BMI 2021-04-10 19:11:00 41.45 kg/m2 [facility] Systolic blood 2021-01-16 14:58:00 124 mm[Hg] Univer sity of pressure [facility] Diastolic blood 2021-01-16 14:58:00 74 mm[Hg] Unive rsity of pressure [facility] Heart rate 2021-01-16 14:58:00 88 /min [facility] Body temperature 2021-01-16 14:58:00 36.28 Jocelyne [facility] Respiratory rate 2021-01-16 14:58:00 16 /min [facility] Body height 2021-01-16 14:58:00 162.6 cm [facility] Body weight 2021-01-16 14:58:00 110.933 kg [facility] BMI 2021-01-16 14:58:00 41.98 kg/m2 [facility] Systolic blood 2020-10-19 18:31:00 130 mm[Hg] Univer sity of pressure [facility] Diastolic blood 2020-10-19 18:31:00 77 mm[Hg] Unive rsity of pressure [facility] Heart rate 2020-10-19 18:31:00 86 /min [facility] Body temperature 2020-10-19 18:31:00 36.5 Jocelyne [facility] Respiratory rate 2020-10-19 18:31:00 16 /min [facility] Body height 2020-10-19 18:31:00 162.6 cm [facility] Body weight 2020-10-19 18:31:00 110.904 kg [facility] BMI 2020-10-19 18:31:00 41.97 kg/m2 [facility] Systolic blood 2020-07-15 18:40:00 127 mm[Hg] Univer sity of pressure [facility] Diastolic blood 2020-07-15 18:40:00 72 mm[Hg] Unive rsity of pressure [facility] Heart rate 2020-07-15 18:40:00 96 /min [facility] Body temperature 2020-07-15 18:40:00 36.67 Jocelyne [facility] Respiratory rate 2020-07-15 18:40:00 16 /min [facility] Body height 2020-07-15 18:40:00 162.6 cm [facility] Body weight 2020-07-15 18:40:00 108.069 kg [facility] BMI 2020-07-15 18:40:00 40.90 kg/m2 [facility] Systolic blood 2020-04-20 19:11:00 120 mm[Hg] Univer sity of pressure [facility] Diastolic blood 2020-04-20 19:11:00 79 mm[Hg] Unive rsity of pressure [facility] Heart rate 2020-04-20 19:11:00 80 /min [facility] Body temperature 2020-04-20 19:11:00 36.83 Jocelyne [facility] Respiratory rate 2020-04-20 19:11:00 16 /min [facility] Body height 2020-04-20 19:11:00 162.6 cm [facility] Body weight 2020-04-20 19:11:00 102.921 kg [facility] BMI 2020-04-20 19:11:00 38.95 kg/m2 [facility] Systolic blood 2020-01-27 18:17:00 116 mm[Hg] Univer sity of pressure [facility] Diastolic blood 2020-01-27 18:17:00 70 mm[Hg] Unive rsity of pressure [facility] Heart rate 2020-01-27 18:17:00 82 /min [facility] Body temperature 2020-01-27 18:17:00 36.94 Jocelyne [facility] Respiratory rate 2020-01-27 18:17:00 16 /min [facility] Body height 2020-01-27 18:17:00 160 cm [facility] Body weight 2020-01-27 18:17:00 105.773 kg [facility] BMI 2020-01-27 18:17:00 41.31 kg/m2 [facility] Systolic blood 2020-01-27 18:17:00 116 mm[Hg] Univer sity of pressure [facility] Diastolic blood 2020-01-27 18:17:00 70 mm[Hg] Unive rsity of pressure [facility] Heart rate 2020-01-27 18:17:00 82 /min [facility] Body temperature 2020-01-27 18:17:00 36.94 Jocelyne [facility] Respiratory rate 2020-01-27 18:17:00 16 /min [facility] Body height 2020-01-27 18:17:00 160 cm [facility] Body weight 2020-01-27 18:17:00 105.773 kg [facility] BMI 2020-01-27 18:17:00 41.31 kg/m2 [facility] Systolic blood 2019-11-04 15:11:00 109 mm[Hg] Univer sity of pressure [facility] Diastolic blood 2019-11-04 15:11:00 67 mm[Hg] Unive rsity of pressure [facility] Heart rate 2019-11-04 15:11:00 102 /min [facility] Body temperature 2019-11-04 15:11:00 37.33 Jocelyne [facility] Respiratory rate 2019-11-04 15:11:00 18 /min [facility] Body height 2019-11-04 15:11:00 162.6 cm [facility] Body weight 2019-11-04 15:11:00 109.68 kg [facility] BMI 2019-11-04 15:11:00 41.50 kg/m2 [facility] Systolic blood 2019-11-04 15:11:00 109 mm[Hg] Univer sity of pressure [facility] Diastolic blood 2019-11-04 15:11:00 67 mm[Hg] Unive rsity of pressure [facility] Heart rate 2019-11-04 15:11:00 102 /min [facility] Body temperature 2019-11-04 15:11:00 37.33 Jocelyne [facility] Respiratory rate 2019-11-04 15:11:00 18 /min [facility] Body height 2019-11-04 15:11:00 162.6 cm Universi ty [facility] Body weight 2019-11-04 15:11:00 109.68 kg Universi ty [facility] BMI 2019-11-04 15:11:00 41.50 kg/m2 Universi ty [facility] Body weight 2019-08-12 14:15:00 100.699 kg Universi [facility] BMI 2019-08-12 14:15:00 38.11 kg/m2 Universi [facility] Systolic blood 2018-11-27 20:09:00 119 mm[Hg] Univer sity [facility] Diastolic blood 2018-11-27 20:09:00 79 [facility]Hg[facility] 2018-11-27 20:09:00 72 /min [facility] Body temperature 2018-11-27 20:09:00 36.33 Jocelyne [facility] Respiratory rate 2018-11-27 20:09:00 16 /min [facility] 2018-11-27 20:09:00 102.513 kg [facility] BMI 2018-11-27 20:09:00 38.79 kg/m2 [facility] Procedures Procedure Date / Time Performed Performing Clinician [facility] ward POCT TEST 2022-09-27 19:29:00 Alessandra Trinidad [facility] PAP SMEAR-LIQUID 2022-04-03 21:29:00 Alessandra Trinidad [facility] CONSENT/REFUSAL FOR 2022-01-03 18:34:00 Doctor Unassigned, No [facility] DIAGNOSIS AND [facility] Branch TREATMENT ASSIGNMENT OF BENEFITS 2020-07-15 18:22:44 Doctor Unassigned, No [facility] ASSIGNMENT OF BENEFITS 2019-05-20 16:47:26 Doctor Unassigned, No [facility] Encounters Start End Encounter Admission Attending Care Care Encounter Source Date/Time Date/Time Type Type Clinicians Facility Department ID 2023-03-20 2023-03-20 Outpatient R [facility] [id number] Univers 10:00:00 10:00:00 ity [facility] 2022-12-26 2022-12-26 Outpatient R MYA [facility] [id number] Univers 08:30:00 09:20:06 SHIRLEY itdash [facility] 2022-12-26 2022-12-26 Nurse Visit, Chriss Nurse [facility] 1.2 .840.114 [id number] Univers 08:30:00 09:20:06 Visit Shirley Roque [employer] W[employer] DISPOSAL MANAGER 350.1.13.1 0 ity of REGIONAL 4.2.7.2.686 Cem as MATERNAL [phone] [facility] & CHILD [address] [place] [address] 2022-09-27 2022-09-27 Nurse Visit, Chriss Nurse [facility] 1.2 .840.114 [id number] Univers 14:30:00 14:42:36 Visit Alessandra Trinidad [employer] W[employer] DISPOSAL MANAGER 350.1.13. 10 ity of REGIONAL [id number] Cem as MATERNAL [id number] [facility] & CHILD [address] [place] [address] 2022-09-27 2022-09-27 Outpatient R VALENTINPE, [facility] [id number] Univers 14:30:00 14:30:00 ALESSANDRA trujilloy o [facility] 2022-09-27 2022-09-27 Outpatient R AMOS, [facility] [id number] Univers 13:00:00 13:00:00 ALESSANDRA trujilloy o [facility] 2022-09-19 2022-09-19 Outpatient R AMOS, [facility] [id number] Univers 13:30:00 13:30:00 ALESSANDRA ity o [facility] 2022-06-27 2022-06-27 Nurse Visit, Chriss Nurse [facility] 1.2 .840.114 [id number] Univers 13:30:00 13:36:46 Visit Alessandra Trinidad SOL[employer] WASTE DISPOSAL MANAGER 350.1.13. 10 ity of REGIONAL 4.2.7.2.686 Cem as MATERNAL [phone] [facility] & CHILD [address] [place] [address] 2022-06-27 2022-06-27 Outpatient R AMOS, [facility] [id number] Univers 13:30:00 13:30:00 ALESSANDRA trujilloy o [facility] 2022-06-26 2022-06-26 Outpatient R VALENTINKAVITA, [facility] [id number] Univers 09:30:00 09:30:00 ALESSANDRA ity o [facility] 2022-04-20 2022-04-20 Telephone [facility] 1.2.840.114 [id number] Univers 00:00:00 00:00:00 Alessandra C [employer] WASTE DISPOSAL MANAGER 350.1.13.10 ity of [facility] 4.2.7.2.686 Cem as MATERNAL [phone] Med ical & CHILD [address] [place] [address] 2022-04-03 2022-04-03 [facility] [id number] Univers 14:00:00 15:15:59 ALESSANDRA castelan o [facility] 2022-04-03 2022-04-03 Office [facility] [id number] [id number] Univers 14:00:00 15:15:59 Visit Alessandra Rogers SOL[employer] WASTE DISPOSAL MANAGER 350.1.13.10 ity of [facility] [id number] Cem as MATERNAL [id number] [facility] & [address] 2022-03-28 2022-03-28 [facility] [id number] Univers 14:30:00 14:30:00 JANEYALDENNDA ity o [facility] 2022-03-28 2022-03-28 Outpatient R AMOS, [facility] [id number] Univers 14:30:00 14:30:00 ALESSANDRA ity o [facility] 2022-01-03 2022-01-03 Outpatient R ADAM [facility] [id number] Univers 13:30:00 13:53:50 TRINDA ity o [facility] 2022-01-03 2022-01-03 Nurse Visit, Ang-Rmchp Nurse [facility] 1.2 .840.114 [id number] Univers 13:30:00 13:53:50 Visit Medina, Roshunda R [employer] W[employer]E DISPOSAL MANAGER 350.1.13.10 ity of [facility] 4.2.7.2.686 Cem as MATERNAL [id number] [facility] ical & CHILD [address] [place] [address] 2022-01-03 2022-01-03 Orders Doctor INDRA 1.2.840.114 [id number] Univers 00:00:00 00:00:00 Only Unassigned, MIKE 350.1.13.10 ity of [place] [facility] 4.2.7.2.686 Cem as [id number] [address] 2021-12-29 2021-12-29 Outpatient R [facility] [id number] Univers 08:00:00 08:00:00 ity of [facility] 2021-12-27 2021-12-27 Outpatient R ADAM [facility] [id number] Univers 13:30:00 13:30:00 ERICA castelan o [facility] 2021-10-06 2021-10-06 Outpatient R ADAM [facility] [id number] Univers 08:30:00 08:51:38 ERICA castelan o [facility] 2021-10-06 2021-10-06 Nurse Visit, Donaldo[facility] Nurse [facility] 1.2 .840.114 [id number] Univers 08:30:00 08:51:38 Visit [place], Rosyuliya Mccallum SOL[employer] WASTE DISPOSAL MANAGER 350.1.13.10 ity of [facility] 4.2.7.2.686 Cem as MATERNAL [phone] [facility] & CHILD [address] [place] [address] 2021-07-07 2021-07-07 [facility] 1.2 .840.114 [id number] Univers 13:30:00 14:00:55 Visit Medina, Rosyuliya Mccallum SOLID WASTE DISPOSAL MANAGER 350.1.13.10 ity of [facility] 4.2.7.2.686 Cem as MATERNAL [id number] [facility] & CHILD [address] [place] [address] 2021-07-07 2021-07-07 Outpatient R ADAM [facility] [id number] Univers 13:30:00 13:30:00 ERICA castelan o [facility] 2021-07-03 2021-07-03 Outpatient Xena MEDINA [facility] [id number] Univers 13:00:00 13:00:00 ERICA jeffries ольга [facility] 2021-04-10 2021-04-10 Nurse Visit, Ang-Rmchp Nurse [facility] 1.2 .840.114 [id number] Univers 13:04:13 13:15:50 Visit Erica Medina SOLID WASTE DISPOSAL MANAGER 350.1.13.10 ity of [facility] 4.2.7.2.686 Cem as MATERNAL [phone] [facility] ical & CHILD [address] [place] [address] 2021-04-10 2021-04-10 Outpatient Xena MEDINA [facility] [id number] Univers 13:00:00 13:15:50 ERICA jeffries ольга [facility] 2021-04-10 2021-04-10 [facility]patient [facility] [id number] Univers 13:00:00 13:00:00 ERICA rolon [facility] 2021-02-02 2021-02-02 Telephone [facility] 1.2.957.450 [id number] Univers 00:00:00 00:00:00 Erica Mccallum SOLID WASTE DISPOSAL MANAGER 350.1.13.10 ity of [facility] 4.2.7.2.686 Cem as MATERNAL [phone] [facility] & CHILD [address] [place] [address] 2021-01-16 2021-01-16 Office [facility] [id number] [id number] Univers 09:50:49 10:24:22 Visit Alessandra Rogers SOLID WASTE DISPOSAL MANAGER 350.1.13.10 ity of [facility] 4.2.7.2.686 Cem as MATERNAL [id number] [facility] & CHILD [address] [place] [address] 2021-01-16 2021-01-16 Outpatient Xena TRINIDAD [facility] [id number] Univers 10:00:00 10:00:00 ALESSANDRA jeffries [facility] 2021-01-11 2021-01-11 Outpatient Xena [facility] [id number] Univers 13:00:00 13:00:00 ERICA castelan o f [facility] 2020-10-19 2020-10-19 Outpatient R CASANDRA [facility] [id number] Univers 13:50:00 13:50:00 TYLER itdash [facility] 2020-10-19 2020-10-19 Outpatient R AMOS [facility] [id number] Univers 13:30:00 13:30:00 ALESSANDRA jeffries [facility] 2020-10-19 2020-10-19 Nurse [facility] 1.2 .840.114 [id number] Univers 13:14:23 13:29:34 Visit Alessandra Trinidad SOLID WASTE DISPOSAL MANAGER 350.1.13. 10 ity [facility] 4.2.7.2.686 Cem as MATERNAL [phone] [facility] ical & CHILD [address] [place] [address] 2020-10-07 2020-10-07 Outpatient R [facility] [id number] Univers 13:00:00 13:00:00 ity [facility] 2020-07-19 2020-07-19 Patient Casandra [facility] 1.2.840.114 [id number] Univers 00:00:00 00:00:00 Outreach Tyler [facility] 350.1.13.10 i ty [facility] 4.2.7.2.686 [place] [id number] [address] 2020-07-15 2020-07-15 Nurse Visit, Anibaljace Nurse [facility] 1.2 .840.114 [id number] Univers 13:23:35 13:45:09 Visit Erica Medina SOLID WASTE DISPOSAL MANAGER 350.1.13.10 ity [facility] 4.2.7.2.686 Cem as MATERNAL [id number] [facility] & [address] 2020-07-15 2020-07-15 Outpatient R ADAM [facility] [id number] Univers 13:30:00 13:30:00 ERICA jeffries [facility] 2020-07-15 2020-07-15 Telephone Adam [facility] [id number] [id number] Univers 00:00:00 00:00:00 Erica R SOLID WASTE DISPOSAL MANAGER 350.1.13.10 ity of [facility] 4.2.7.2.686 Cem as MATERNAL [id number] [facility] & CHILD [address] [place] [address] 2020-07-15 2020-07-15 Orders Doctor INDRA 1.2.840.114 [id number] Univers 00:00:00 00:00:00 Only Unassigned, MIKE 350.1.13.10 ity [facility] 4.2.7.2.686 Cem as [id number] [address] 2020-07-13 2020-07-13 Outpatient R [facility] [id number] Univers 13:30:00 13:30:00 ity of [facility] 2020-04-20 2020-04-20 Outpatient R [facility] [id number] Univers 13:30:00 13:30:00 ity of [facility] 2020-04-20 2020-04-20 [facility] [id number] Univers 13:30:00 13:30:00 ERICA ity o f [facility] 2020-04-20 2020-04-20 Nurse Visit, Anibalchp Nurse [facility] 1.2 .840.114 [id number] Univers 13:04:30 13:18:35 Visit Erica Medina SOLID WASTE DISPOSAL MANAGER 350.1.13.10 ity of [address]686 Cem as MATERNAL [id number] [facility] & [address] 2020-01-27 2020-01-27 Nurse Visit, [facility] 1.2.840.114 [id number] 13:04:26 13:45:06 [facility] SOLID WASTE DISPOSAL MANAGER 350.1.13.10 Nurse [facility] 4.2.7.2.686 MATERNAL [id number] & [address] 2020-01-27 2020-01-27 Nurse Visit, Ang-Rmchp Nurse [facility] 1.2 .840.114 [id number] Univers 13:04:26 13:45:06 Visit MedinaErica SOLID WASTE DISPOSAL MANAGER 350.1.13.10 ity of [facility] 4.2.7.2.686 Cem as MATERNAL [id number] [facility] ical & CHILD [address] [place] [address] 2020-01-27 2020-01-27 Outpatient R [facility] [id number] Univers 13:00:00 13:00:00 ity of [facility] 2019-11-04 2019-11-04 Office Adam [facility] 1.2.840.114 [id number] 09:43:58 10:49:54 Visit Janeynda R SOL[employer] WASTE DISPOSAL MANAGER 350.1.13.10 REGIONAL 4.2.7.2.686 MATERNAL [phone] & CHILD [address] [place] [address] 2019-11-04 2019-11-04 Office [facility] 1.2.840.114 [id number] Univers 09:43:58 10:49:54 Visit Janeyndlisa R SOLID WASTE DISPOSAL MANAGER 350.1.13.10 ity of [facility] [id number] Cem as MATERNAL [id number] [facility] & CHILD [address] [place] [address] 2019-11-04 2019-11-04 [facility] [id number] Univers 10:15:00 10:15:00 ALEXISLisa trujillodash o [facility] 2019-08-12 2019-08-12 [facility] [id number] [employer] 09:30:00 09:30:00 ERICA annelise o ольга [facility] 2019-08-12 2019-08-12 Nurse Visit, Chriss Nurse [facility] 1.2 .840.114 [id number] Univers 09:03:17 09:23:46 Visit Erica Medina R SOLID WASTE DISPOSAL MANAGER [id number] ity of [facility] [id number] Cem as MATERNAL [id number] [facility] & CHILD [address] [place] [address] 2019-05-20 2019-05-20 Nurse Visit, Chriss Nurse [facility] 1.2 .840.114 [id number] Univers 10:47:10 11:00:37 Visit Erica Medina R SOLID WASTE DISPOSAL MANAGER [id number] ity of [facility] [id number] Cem as MATERNAL [phone] Med ical & CHILD [address] [place] [address] 2019-05-20 2019-05-20 Orders Doctor INDRA [id number] 00:00:00 00:00:00 Only Unassigned, MIKE [id number] ity of [place] [facility] [id number] Cem as [phone] [address] 2018-11-27 2018-11-27 [facility] 1.2 .840.114 [id number] [facility] 14:59:35 15:14:35 Visit Alessandra Trinidad SOLID WASTE DISPOSAL MANAGER [id number]. 10 ity of [facility] [id number] Cem as MATERNAL [id number] [facility] ical & CHILD [address] [place] [address] Results Test Description Test Time Test Comments Results Result Comments Source POCT TEST 2022-09-27 19:31:00 Test Item Value Reference Range Interpretation Comme nts POCT PREG (test code = 1605) Negative On board controls acceptable with C Line (test code = 3574) Yes POCT PREG LOT # (test code = 3575) POCT PREG TEST DATE (test code = 3576) [facility]
--- NOTE | 2022-12-30 22:37 | RAD REPORT ---
EXAM DESCRIPTION: RAD - Chest Pa And Lat (2 Views) - 12/30/2022 10:18 pm CLINICAL HISTORY: CHEST PAIN COMPARISON: Chest Pa And Lat (2 Views) dated 09/07/2017 FINDINGS: Lines: None. Lungs: No evidence of edema or pneumonia. Pleural: No significant pleural effusions or pneumothorax. Cardiac: The heart size is within normal limits. Mediastinum: Within normal limits. Bones: No acute fractures. Other: None IMPRESSION: No acute cardiopulmonary disease.
--- NOTE | 2022-12-31 00:30 | ER ---
Nurse's Notes [facility] Name: Vero Ahmadi Age: 27 yrs Sex: Female : 1995 Arrival Date: 12/30/2022 Time: 20:42 Bed External Waiting [facility] MD: Diagnosis: Presentation: 12/30 21:54 Chief complaint: Patient states: I've been having a pain in my chest since last night. vc1 If I bend over I get a sharp stabbing pain. I tried helping my mom vacuum and it was too painful. Coronavirus screen: Client denies travel out of the [place] in the last 14 days. At this time, the client does not indicate any symptoms associated with coronavirus-19. Ebola Screen: Patient negative for fever greater than or equal to 101.5 degrees Fahrenheit, and additional compatible Ebola Virus Disease symptoms Patient denies exposure to infectious person. Patient denies travel to an Ebola-affected area in the 21 days before illness onset. No symptoms or risks identified at this time. Initial Sepsis Screen: Does the patient meet any 2 criteria? No. Patient's initial sepsis screen is negative. Does the patient have a suspected source of infection? No. Patient's initial sepsis screen is negative. Risk Assessment: Do you want to hurt yourself or someone else? Patient reports no desire to harm self or others. Onset of symptoms was December 29, 2022. 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 - Social history:: Smoking status: Patient denies any tobacco usage or history of. Vital Signs: 21:54 BP 95 / 60; Pulse 90; Resp 18; Temp 98.1; Pulse Ox 100% ; Weight 104.33 kg; Height 5 vc1 ft. 3 in. ; Pain 7/10; 21:54 Body Mass Index 40.74 (104.33 kg, 160.02 cm) vc1 21:54 Pain Scale: Adult vc1 ED Course: 20:44 Patient arrived in ED. mr 21:53 Layton Thurman MD is Attending Physician. leelee 21:55 Triage completed. vc1 21:56 Arm band placed on left wrist. vc1 22:19 Chest Pa And Lat (2 Views) XRAY In Process Unspecified. EDMS Administered Medications: No medications were administered Outcome: 12/31 00:14 Eloped from patient exam room, before seeing physician Time discovered patient gone: vc1 December 31, 2022 at 00:14 00:29 Patient left the ED. vc1 Signatures: Dispatcher [employer] EDMS Layton Thurman MD MD cha Rivera, Marcia Conklin, RN RN vc1 Corrections: (The following items were deleted from the chart) 00:29 00:28 Eloped from patient exam room, before seeing physician Time discovered patient vc1 gone: December 31, 2022 at 00:14 vc1
[2022-12-31 01:18] VITALS: BP 95/60; TEMP 98.1; O2SAT 100
--- NOTE | 2023-01-01 16:50 | EKG ---
Test Date: 2022-12-30 Test Time: 21:50:48 Metal Trim Erector: BETTYE MEASUREMENT RESULTS: Intervals: Rate: 82 WI: 122 QRSD: 72 QT: 366 QTc: 427 [place]: P: 38 WI: 122 QRS: 23 T: 22 INTERPRETIVE STATEMENTS: Normal sinus rhythm with sinus arrhythmia Cannot rule out Anterior infarct, age undetermined Abnormal ECG No previous ECG available for comparison Electronically Signed On 01-01-23 16:45:12 CDT by Eliud Rose
== END 2022-12-31 00:29 | disposition left against medical advice (07) ==
LOC: ER 20:42
DX: Z53.21 Procedure and treatment not carried out due to patient leaving prior to being seen by health care provider (principal)
CPT/HCPCS: 71046; 93005; 99281